=== PATIENT | female | born 1930 | race Caucasian/White ===

== ENCOUNTER 2018-03-21 23:20 | Inpatient (IN) | payer MEDICARE, MEDICAID ==
[~2018-03-21] VITALS: Ht 162.6 cm; Wt 74.8 kg
[~2018-03-21 23:20] MED LIST: NKM
[2018-03-21 23:29] VITALS: BP 95/67
[2018-03-21] MEDS ORDERED: dilTIAZem HCl 25mg/5ml Inj IVP ONE (23:45)
[2018-03-22] VITALS (7 sets, daily range): BP systolic 127–161; BP diastolic 70–85
[2018-03-22 00:24] LABS: BASOPHILS % (AUTO) 0.6 % (0.0-2.0); EOSINOPHILS % (AUTO) 0.7 % (0.0-3.0); HEMATOCRIT 38.7 % (37.0-47.0); HEMOGLOBIN 12.8 G/DL (12.0-16.0); LYMPHOCYTES % (AUTO) 19.9 % (20.0-45.0); MEAN CORPUSCULAR VOLUME 80 FL (80-99); MONOCYTES % (AUTO) 7.3 % (1.0-10.0); NEUTROPHILS % (AUTO) 71.6 % (45.0-75.0); PLATELET COUNT 354 K/UL (150-450); RED BLOOD COUNT 4.85 M/UL (4.20-5.40); RED CELL DISTRIBUTION WIDTH 12.9 % (11.6-14.8); WHITE BLOOD COUNT 10.2 K/UL (4.8-10.8)
[2018-03-22 00:37] LABS: ANION GAP 11 mmol/L (5-15); BLOOD UREA NITROGEN 30 mg/dL (7-18); CALCIUM 9.3 MG/DL (8.5-10.1); CARBON DIOXIDE 26 MMOL/L (21-32); CHLORIDE 103 MMOL/L (98-107); CREATININE 1.6 MG/DL (0.55-1.30); POTASSIUM 3.5 MMOL/L (3.5-5.1); SODIUM 140 MMOL/L (136-145)
[2018-03-22 00:51] LABS: ALANINE AMINOTRANSFERASE 12 U/L (12-78); ALBUMIN/GLOBULIN RATIO 0.7 (1.0-2.7); ALKALINE PHOSPHATASE 69 U/L (46-116); ASPARTATE AMINO TRANSFERASE 12 U/L (15-37); BILIRUBIN,TOTAL 0.3 MG/DL (0.2-1.0); CKMB 0.5 NG/ML (0.0-3.6); CREATINE KINASE 19 U/L (26-308)
[2018-03-22 01:00] LABS: BILIRUBIN, URINE 1+ (NEGATIVE); GLUCOSE, URINE (UA) 1+ (NEGATIVE); KETONES,URINE 1+ (NEGATIVE); NITRITE,URINE NEGATIVE (NEGATIVE); PH,URINE 5 (4.5-8.0); PROTEIN,URINE 2+ (NEGATIVE); UROBILINOGEN,URINE 1 MG/DL (0.0-1.0)
[2018-03-22 01:17] LABS: APPEARANCE,URINE CLOUDY; COLOR,URINE AMBER; LEUKOCYTE ESTERASE ,URINE 3+ (NEGATIVE)
[2018-03-22] MEDS ORDERED: cefTRIAXone 1 GM in NS 55 ML IVPB ONE (01:45)
[2018-03-22] MEDS: D5 1/2NS 1,000 ML IV SCH ×2 (06:16→23:32)
[2018-03-22 07:45] LABS: BASOPHILS % (AUTO) 0.7 % (0.0-2.0); EOSINOPHILS % (AUTO) 1.2 % (0.0-3.0); HEMATOCRIT 37.4 % (37.0-47.0); HEMOGLOBIN 12.3 G/DL (12.0-16.0); LYMPHOCYTES % (AUTO) 18.9 % (20.0-45.0); MEAN CORPUSCULAR VOLUME 81 FL (80-99); MONOCYTES % (AUTO) 6.4 % (1.0-10.0); NEUTROPHILS % (AUTO) 72.8 % (45.0-75.0); PLATELET COUNT 295 K/UL (150-450); RED BLOOD COUNT 4.64 M/UL (4.20-5.40); RED CELL DISTRIBUTION WIDTH 13.1 % (11.6-14.8); WHITE BLOOD COUNT 10.5 K/UL (4.8-10.8)
[2018-03-22] MEDS ORDERED: Enalaprilat 2.5mg/2ml Inj IV PRN (08:00)
[2018-03-22] MEDS ORDERED: dilTIAZem HCl 25mg/5ml Inj IV PRN (08:00)
[2018-03-22] MEDS ORDERED: Ketorolac 30mg Inj IV PRN (08:00)
[2018-03-22] MEDS ORDERED: Morphine Sulfate 2mg/ml Inj(IV/IM USE ONLY) IVP PRN (08:00)
[2018-03-22] MEDS ORDERED: Nitroglycerin Subl 0.4mg tab SL PRN (08:00)
[2018-03-22] MEDS ORDERED: Albuterol/Ipratropium 3ml neb HHN PRN (08:00)
[2018-03-22] MEDS ORDERED: Miralax 17gm pkt ORAL PRN (08:00)
[2018-03-22 08:08] LABS: ANION GAP 8 mmol/L (5-15); BLOOD UREA NITROGEN 29 mg/dL (7-18); CARBON DIOXIDE 30 MMOL/L (21-32); CHLORIDE 104 MMOL/L (98-107); CREATININE 1.4 MG/DL (0.55-1.30); POTASSIUM 3.5 MMOL/L (3.5-5.1); SODIUM 142 MMOL/L (136-145)
[2018-03-22] MEDS: Heparin 5000 units/ml inj SUBQ SCH ×2 (08:15→20:44)
[2018-03-22] MEDS: Aspirin Baby 81mg ORAL SCH (08:16)
--- NOTE | 2018-03-22 10:00 | Diagnostic Imaging Report ---
Indications: Altered mental status Technique: Spiral acquisitions obtained through the brain. Angled axial and coronal 5 x 5 mm slices were reconstructed. Total dose length product 1207.18 mGycm. CTDI vol(s) 70.38 mGy. Dose reduction achieved using automated exposure control Comparison: None. Findings: There is marked age-related enlargement of the ventricles and extra axial CSF spaces. There is considerable periventricular deep white matter low-attenuation, consistent with chronic ischemic change. No acute intracranial hemorrhage or edema, mass effect, nor midline shift. The calvarium is intact. There is some mastoid opacification on the right. Visualized orbits and sinuses are unremarkable. Old lacunar infarcts are seen in the bilateral external capsule regions. Impression: Chronic and age-related changes, as described Negative for acute intracranial bleed or mass effect This agrees with the preliminary interpretation provided overnight by [facility] service. The CT scanner at [facility] is accredited by the [employer] and the scans are performed using protocols designed to limit radiation exposure to as low as reasonably achievable to attain images of sufficient resolution adequate for diagnostic evaluation.
[2018-03-22] MEDS ORDERED: JANUVIA25 MG ORAL (10:26)
[2018-03-22] MEDS ORDERED: VITAMIN D250000 UNI1 ORAL (10:26)
[2018-03-22] MEDS ORDERED: METFORMIN HCL500 M1 ORAL (10:26)
[2018-03-22] MEDS ORDERED: PROTONIX40 MG ORAL (10:26)
[2018-03-22] MEDS ORDERED: ASPIRIN81 MG ORAL (10:26)
--- NOTE | 2018-03-22 11:25 | Consultation ---
History of Present Illness General Chief Complaint: Generalized Weakness Present Illness Allergies: Coded Allergies: No Known Allergies (Unverified , 03/21/18) Medication History Scheduled Aspirin* (Aspirin*), 81 MG ORAL DAILY, (Reported) Ergocalciferol (Vitamin D2)* (Vitamin D*), 50,000 UNIT ORAL ONCE A WEEK, ( Reported) Metformin Hcl* (Metformin Hcl*), 500 MG ORAL TWICE A DAY, (Reported) No Known Medications* (NKM - No Known Medications*), 0 ., (Reported) Pantoprazole* (Protonix*), 40 MG ORAL ACBREAKFAST, (Reported) Sitagliptin* (Januvia*), 25 MG ORAL DAILY, (Reported) Patient History Healthcare decision maker Resuscitation status Full Code Advanced Directive on File Physical Exam Last 24 Hour Vital Signs Date Time Temp Pulse Resp B/P (MAP) Pulse Ox O2 Delivery O2 Flow Rate FiO2 03/22/18 10:00 98.0 94 18 139/74 (95) 98 98.0 03/22/18 09:00 Room Air 03/22/18 07:33 89 03/22/18 05:55 Room Air 03/22/18 04:00 97.3 92 18 133/74 (93) 98 97.3 03/22/18 04:00 89 03/22/18 03:54 92 03/22/18 03:43 97.5 90 23 158/85 (109) 96 97.5 03/22/18 03:40 97.9 88 17 149/71 97 Room Air 97.9 03/22/18 03:30 97.9 88 17 149/71 97 Room Air 97.9 03/22/18 00:01 122 125/75 03/21/18 23:29 97.9 117 16 95/67 98 Room Air 97.9 03/21/18 22:55 97.9 162 16 95/67 98 Room Air 97.9 Intake and Output 03/21/18 03/22/18 19:00 07:00 Intake Total 44 ml Output Total 300 ml Balance -256 ml Intake IV Total 44 ml Output Urine Total 300 ml Laboratory Tests Test 03/22/18 00:00 03/22/18 02:00 03/22/18 07:15 White Blood Count 10.2 K/UL (4.8-10.8) 10.5 K/UL (4.8-10.8) Red Blood Count 4.85 M/UL (4.20-5.40) 4.64 M/UL (4.20-5.40) Hemoglobin 12.8 G/DL (12.0-16.0) 12.3 G/DL (12.0-16.0) Hematocrit 38.7 % (37.0-47.0) 37.4 % (37.0-47.0) Mean Corpuscular Volume 80 FL (80-99) 81 FL (80-99) Mean Corpuscular Hemoglobin 26.4 PG (27.0-31.0) L 26.6 PG (27.0-31.0) L Mean Corpuscular Hemoglobin Concent 33.0 G/DL (32.0-36.0) 33.0 G/DL (32.0-36.0) Red Cell Distribution Width 12.9 % (11.6-14.8) 13.1 % (11.6-14.8) Platelet Count 354 K/UL (150-450) 295 K/UL (150-450) Mean Platelet Volume 7.7 FL (6.5-10.1) 7.4 FL (6.5-10.1) Neutrophils (%) (Auto) 71.6 % (45.0-75.0) 72.8 % (45.0-75.0) Lymphocytes (%) (Auto) 19.9 % (20.0-45.0) L 18.9 % (20.0-45.0) L Monocytes (%) (Auto) 7.3 % (1.0-10.0) 6.4 % (1.0-10.0) Eosinophils (%) (Auto) 0.7 % (0.0-3.0) 1.2 % (0.0-3.0) Basophils (%) (Auto) 0.6 % (0.0-2.0) 0.7 % (0.0-2.0) Urine Color Vandana Urine Appearance Cloudy Urine pH 5 (4.5-8.0) Urine Specific [place] 1.025 (1.005-1.035) Urine Protein 2+ (NEGATIVE) H Urine Glucose (UA) 1+ (NEGATIVE) H Urine Ketones 1+ (NEGATIVE) H Urine Occult Blood 3+ (NEGATIVE) H Urine Nitrite Negative (NEGATIVE) Urine Bilirubin 1+ (NEGATIVE) H Urine Ictotest Positive (NEGATIVE) Urine Urobilinogen 1 MG/DL (0.0-1.0) H Urine Leukocyte Esterase 3+ (NEGATIVE) H Urine RBC 5-10 /HPF (0 - 2) H Urine WBC 40-60 /HPF (0 - 2) H Urine Squamous Epithelial Cells Moderate /LPF (NONE/OCC) H Urine Bacteria Moderate /HPF (NONE) H Urine Hyaline Casts 0-2 /LPF (NONE) H Urine Other Casts /LPF (NONE) Urine Mucus Moderate /LPF (NONE/OCC) H Sodium Level 140 MMOL/L (136-145) 142 MMOL/L (136-145) Potassium Level 3.5 MMOL/L (3.5-5.1) 3.5 MMOL/L (3.5-5.1) Chloride Level 103 MMOL/L (98-107) 104 MMOL/L (98-107) Carbon Dioxide Level 26 MMOL/L (21-32) 30 MMOL/L (21-32) Anion Gap 11 mmol/L (5-15) 8 mmol/L (5-15) Blood Urea Nitrogen 30 mg/dL (7-18) H 29 mg/dL (7-18) H Creatinine 1.6 MG/DL (0.55-1.30) H 1.4 MG/DL (0.55-1.30) H Estimat Glomerular Filtration Rate mL/min (>60) mL/min (>60) Glucose Level 234 MG/DL (74-106) H 220 MG/DL (74-106) H Lactic Acid Level 5.20 mmol/L (0.4-2.0) H 4.20 mmol/L (0.4-2.0) H Calcium Level 9.3 MG/DL (8.5-10.1) 10.0 MG/DL (8.5-10.1) Total Bilirubin 0.3 MG/DL (0.2-1.0) Aspartate Amino Transf (AST/SGOT) 12 U/L (15-37) L Alanine Aminotransferase (ALT/SGPT) 12 U/L (12-78) Alkaline Phosphatase 69 U/L (46-116) Total Creatine Kinase 19 U/L (26-308) L Creatine Kinase MB 0.5 NG/ML (0.0-3.6) Creatine Kinase MB Relative Index 2.6 Troponin I 0.000 ng/mL (0.000-0.056) 0.017 ng/mL (0.000-0.056) Pro-B-Type Natriuretic Peptide 1692 pg/mL (0-125) H Total Protein 7.3 G/DL (6.4-8.2) Albumin 3.0 G/DL (3.4-5.0) L Globulin 4.3 g/dL Albumin/Globulin Ratio 0.7 (1.0-2.7) L Height (Feet): 5 Height (Inches): 4.00 Weight (Pounds): 165 Medications Current Medications Medications (Trade) Dose Ordered Sig/Roman Route PRN Reason Start Time Stop Time Status Last Admin Dose Admin Acetaminophen (Tylenol) 650 mg Q4H PRN ORAL FEVER 03/22/18 08:00 04/21/18 07:59 Albuterol/ Ipratropium (Albuterol/ Ipratropium) 3 ml Q4H PRN HHN Shortness of Breath 03/22/18 08:00 03/27/18 07:59 Aspirin (ASA) 162 mg DAILY ORAL 03/22/18 09:00 04/21/18 08:59 03/22/18 08:16 Dextrose (Dextrose 50%) 25 ml STAT PRN IV Hypoglycemia 03/22/18 06:00 04/21/18 05:59 Dextrose (Dextrose 50%) 50 ml STAT PRN IV Hypoglycemia 03/22/18 06:00 04/21/18 05:59 Dextrose/Sodium Chloride 1,000 ml @ 60 mls/hr [id number] IV 03/22/18 07:00 04/21/18 06:59 03/22/18 06:16 Diltiazem HCl (Cardizem) 10 mg Q12H PRN IV heart rate more than 120, 03/22/18 08:00 04/21/18 07:59 Enalaprilat (Vasotec) 2.5 mg Q6H PRN IV sbp more than 160 03/22/18 08:00 04/21/18 07:59 Heparin Sodium (Porcine) (Heparin 5000 units/ml) 5,000 units EVERY 12 HOURS SUBQ 03/22/18 09:00 04/21/18 08:59 03/22/18 08:15 Ketorolac Tromethamine (Toradol 30mg) 30 mg Q6H PRN IV Moderate Pain (Pain Scale 4-6) 03/22/18 08:00 03/27/18 07:59 Morphine Sulfate (Morphine Sulfate) 2 mg Q4H PRN IVP Severe Pain (Pain Scale 7-10) 03/22/18 08:00 03/29/18 07:59 Nitroglycerin (Ntg) 0.4 mg Q5MIN PRN SL Prn Chest Pain 03/22/18 08:00 04/21/18 07:59 Ondansetron HCl (Zofran) 4 mg Q6H PRN IVP Nausea & Vomiting 03/22/18 08:00 04/21/18 07:59 Polyethylene Glycol (Miralax) 17 gm DAILYPRN PRN ORAL Constipation 03/22/18 08:00 04/21/18 07:59 Temazepam (Restoril) 15 mg HSPRN PRN ORAL Insomnia 03/22/18 21:00 03/29/18 20:59 Renan Varela M.D. Mar 22, 2018 11:25
--- NOTE | 2018-03-22 11:26 | Diagnostic Imaging Report ---
Indication: Shortness of breath Technique: One view of the chest Comparison: none Findings: There is elevation of left hemidiaphragm. There is crowding of the bronchovascular markings in the left perihilar region. The lungs and pleural spaces are otherwise clear. The heart size is upper limits of normal. Impression: No acute process
--- NOTE | 2018-03-22 11:48 | Consultation ---
History of Present Illness General Date patient seen: Mar 22, 2018 Chief Complaint: Generalized Weakness Present Illness HPI 87 year old female with hx of afib, CAD, recent fall and vertebral fracture, brought in by paramedics for increased weakness. Pt's daughter is concerned that pt can't walk any more and feels dizzy any time she tried to walk. Allergies: Coded Allergies: No Known Allergies (Unverified , 03/21/18) Medication History Scheduled Aspirin* (Aspirin*), 81 MG ORAL DAILY, (Reported) Ergocalciferol (Vitamin D2)* (Vitamin D*), 50,000 UNIT ORAL ONCE A WEEK, ( Reported) Metformin Hcl* (Metformin Hcl*), 500 MG ORAL TWICE A DAY, (Reported) No Known Medications* (NKM - No Known Medications*), 0 ., (Reported) Pantoprazole* (Protonix*), 40 MG ORAL ACBREAKFAST, (Reported) Sitagliptin* (Januvia*), 25 MG ORAL DAILY, (Reported) Patient History Healthcare decision maker Resuscitation status Full Code Advanced Directive on File Past Medical/Surgical History Past Medical/Surgical History: (1) Vertebral fracture (2) HTN (hypertension) Review of Systems All Other Systems: negative except mentioned in HPI Physical Exam General Appearance: WD/WN Lines, tubes and drains: peripheral HEENT: normocephalic, atraumatic Neck: non-tender, normal alignment Respiratory/Chest: chest wall non-tender, lungs clear Cardiovascular/Chest: normal peripheral pulses, normal rate Abdomen: normal bowel sounds Genitourinary/Rectal: normal genital exam Extremities: normal range of motion Neurologic: mud grinder II-XII grossly normal Last 24 Hour Vital Signs Date Time Temp Pulse Resp B/P (MAP) Pulse Ox O2 Delivery O2 Flow Rate FiO2 03/22/18 11:30 98.0 92 18 161/85 (110) 98 98.0 03/22/18 10:00 98.0 94 18 139/74 (95) 98 98.0 03/22/18 09:00 Room Air 03/22/18 07:33 89 03/22/18 05:55 Room Air 03/22/18 04:00 97.3 92 18 133/74 (93) 98 97.3 03/22/18 04:00 89 03/22/18 03:54 92 03/22/18 03:43 97.5 90 23 158/85 (109) 96 97.5 03/22/18 03:40 97.9 88 17 149/71 97 Room Air 97.9 03/22/18 03:30 97.9 88 17 149/71 97 Room Air 97.9 03/22/18 00:01 122 125/75 03/21/18 23:29 97.9 117 16 95/67 98 Room Air 97.9 03/21/18 22:55 97.9 162 16 95/67 98 Room Air 97.9 Intake and Output 03/21/18 03/22/18 19:00 07:00 Intake Total 44 ml Output Total 300 ml Balance -256 ml Intake IV Total 44 ml Output Urine Total 300 ml Laboratory Tests Test 03/22/18 00:00 03/22/18 02:00 03/22/18 07:15 White Blood Count 10.2 K/UL (4.8-10.8) 10.5 K/UL (4.8-10.8) Red Blood Count 4.85 M/UL (4.20-5.40) 4.64 M/UL (4.20-5.40) Hemoglobin 12.8 G/DL (12.0-16.0) 12.3 G/DL (12.0-16.0) Hematocrit 38.7 % (37.0-47.0) 37.4 % (37.0-47.0) Mean Corpuscular Volume 80 FL (80-99) 81 FL (80-99) Mean Corpuscular Hemoglobin 26.4 PG (27.0-31.0) L 26.6 PG (27.0-31.0) L Mean Corpuscular Hemoglobin Concent 33.0 G/DL (32.0-36.0) 33.0 G/DL (32.0-36.0) Red Cell Distribution Width 12.9 % (11.6-14.8) 13.1 % (11.6-14.8) Platelet Count 354 K/UL (150-450) 295 K/UL (150-450) Mean Platelet Volume 7.7 FL (6.5-10.1) 7.4 FL (6.5-10.1) Neutrophils (%) (Auto) 71.6 % (45.0-75.0) 72.8 % (45.0-75.0) Lymphocytes (%) (Auto) 19.9 % (20.0-45.0) L 18.9 % (20.0-45.0) L Monocytes (%) (Auto) 7.3 % (1.0-10.0) 6.4 % (1.0-10.0) Eosinophils (%) (Auto) 0.7 % (0.0-3.0) 1.2 % (0.0-3.0) Basophils (%) (Auto) 0.6 % (0.0-2.0) 0.7 % (0.0-2.0) Urine Color Vandana Urine Appearance Cloudy Urine pH 5 (4.5-8.0) Urine Specific [place] 1.025 (1.005-1.035) Urine Protein 2+ (NEGATIVE) H Urine Glucose (UA) 1+ (NEGATIVE) H Urine Ketones 1+ (NEGATIVE) H Urine Occult Blood 3+ (NEGATIVE) H Urine Nitrite Negative (NEGATIVE) Urine Bilirubin 1+ (NEGATIVE) H Urine Ictotest Positive (NEGATIVE) Urine Urobilinogen 1 MG/DL (0.0-1.0) H Urine Leukocyte Esterase 3+ (NEGATIVE) H Urine RBC 5-10 /HPF (0 - 2) H Urine WBC 40-60 /HPF (0 - 2) H Urine Squamous Epithelial Cells Moderate /LPF (NONE/OCC) H Urine Bacteria Moderate /HPF (NONE) H Urine Hyaline Casts 0-2 /LPF (NONE) H Urine Other Casts /LPF (NONE) Urine Mucus Moderate /LPF (NONE/OCC) H Sodium Level 140 MMOL/L (136-145) 142 MMOL/L (136-145) Potassium Level 3.5 MMOL/L (3.5-5.1) 3.5 MMOL/L (3.5-5.1) Chloride Level 103 MMOL/L (98-107) 104 MMOL/L (98-107) Carbon Dioxide Level 26 MMOL/L (21-32) 30 MMOL/L (21-32) Anion Gap 11 mmol/L (5-15) 8 mmol/L (5-15) Blood Urea Nitrogen 30 mg/dL (7-18) H 29 mg/dL (7-18) H Creatinine 1.6 MG/DL (0.55-1.30) H 1.4 MG/DL (0.55-1.30) H Estimat Glomerular Filtration Rate mL/min (>60) mL/min (>60) Glucose Level 234 MG/DL (74-106) H 220 MG/DL (74-106) H Lactic Acid Level 5.20 mmol/L (0.4-2.0) H 4.20 mmol/L (0.4-2.0) H Calcium Level 9.3 MG/DL (8.5-10.1) 10.0 MG/DL (8.5-10.1) Total Bilirubin 0.3 MG/DL (0.2-1.0) Aspartate Amino Transf (AST/SGOT) 12 U/L (15-37) L Alanine Aminotransferase (ALT/SGPT) 12 U/L (12-78) Alkaline Phosphatase 69 U/L (46-116) Total Creatine Kinase 19 U/L (26-308) L Creatine Kinase MB 0.5 NG/ML (0.0-3.6) Creatine Kinase MB Relative Index 2.6 Troponin I 0.000 ng/mL (0.000-0.056) 0.017 ng/mL (0.000-0.056) Pro-B-Type Natriuretic Peptide 1692 pg/mL (0-125) H Total Protein 7.3 G/DL (6.4-8.2) Albumin 3.0 G/DL (3.4-5.0) L Globulin 4.3 g/dL Albumin/Globulin Ratio 0.7 (1.0-2.7) L Height (Feet): 5 Height (Inches): 4.00 Weight (Pounds): 165 Medications Current Medications Medications (Trade) Dose Ordered Sig/Roman Route PRN Reason Start Time Stop Time Status Last Admin Dose Admin Acetaminophen (Tylenol) 650 mg Q4H PRN ORAL FEVER 03/22/18 08:00 04/21/18 07:59 Albuterol/ Ipratropium (Albuterol/ Ipratropium) 3 ml Q4H PRN HHN Shortness of Breath 03/22/18 08:00 03/27/18 07:59 Aspirin (ASA) 162 mg DAILY ORAL 03/22/18 09:00 04/21/18 08:59 03/22/18 08:16 Dextrose (Dextrose 50%) 25 ml STAT PRN IV Hypoglycemia 03/22/18 06:00 04/21/18 05:59 Dextrose (Dextrose 50%) 50 ml STAT PRN IV Hypoglycemia 03/22/18 06:00 04/21/18 05:59 Dextrose/Sodium Chloride 1,000 ml @ 60 mls/hr [id number] IV 03/22/18 07:00 04/21/18 06:59 03/22/18 06:16 Diltiazem HCl (Cardizem) 10 mg Q12H PRN IV heart rate more than 120, 03/22/18 08:00 04/21/18 07:59 Enalaprilat (Vasotec) 2.5 mg Q6H PRN IV sbp more than 160 03/22/18 08:00 04/21/18 07:59 Heparin Sodium (Porcine) (Heparin 5000 units/ml) 5,000 units EVERY 12 HOURS SUBQ 03/22/18 09:00 04/21/18 08:59 03/22/18 08:15 Ketorolac Tromethamine (Toradol 30mg) 30 mg Q6H PRN IV Moderate Pain (Pain Scale 4-6) 03/22/18 08:00 03/27/18 07:59 Morphine Sulfate (Morphine Sulfate) 2 mg Q4H PRN IVP Severe Pain (Pain Scale 7-10) 03/22/18 08:00 03/29/18 07:59 Nitroglycerin (Ntg) 0.4 mg Q5MIN PRN SL Prn Chest Pain 03/22/18 08:00 04/21/18 07:59 Ondansetron HCl (Zofran) 4 mg Q6H PRN IVP Nausea & Vomiting 03/22/18 08:00 04/21/18 07:59 Polyethylene Glycol (Miralax) 17 gm DAILYPRN PRN ORAL Constipation 03/22/18 08:00 04/21/18 07:59 Temazepam (Restoril) 15 mg HSPRN PRN ORAL Insomnia 03/22/18 21:00 03/29/18 20:59 Assessment/Plan Problem List: (1) Altered mental status ICD Codes: R41.82 - Altered mental status, unspecified SNOMED: 675626109 (2) Episode of generalized weakness ICD Codes: R53.1 - Weakness SNOMED: 95078247 (3) HTN (hypertension) ICD Codes: I10 - Essential (primary) hypertension SNOMED: 36822066 Assessment/Plan telemetry monitoring pt/ot cardiac evaluation check electrolytes dvt prophylaxis symptomatic treatment. Jaison Fine MD Mar 22, 2018 11:48
[2018-03-22] MEDS ORDERED: LORazepam 0.5mg tab ORAL PRN (15:30)
[2018-03-22] MEDS: Memantine 5 MG TAB ORAL SCH (17:10)
--- NOTE | 2018-03-22 18:57 | Consultation ---
Consult Note Consult Note NEUROLOGY CONSULTATION: Full note dictated #[id number] 87 y/o, RH, CF with PH of DM, AF, R-[place], episodes of loss of consciousness, gait problems, L2 spinal fracture. She was hospitalized for generalized weakness and loss of ability to walk. ON EXAM: Tenderness over L Spine. Problems with orientation, memory. Right peripheral VII CN palsy. Feels pain all over and thus unable to give good effort with motor exam. Globally diminished DTRs. Unable to stand and walk. IMPRESSION: Weakness due to poor effort due to pain. CT of brain with old CVD - subcortical. Cognitive dysfunction REC: W/U Cognitive dysfunction. Mobilize with PT/OT Lidoderm patch to LS spine. Yamilet Morelos M.D., M.S.P.H. YAMILET MORELOS Mar 22, 2018 18:57
--- NOTE | 2018-03-22 21:00 | History and Physical Report ---
DATE OF ADMISSION: 03/22/2018 TIME: 2 p.m. CONSULTANTS: 1. Jaison Fine M.D. 2. Babak Morelos M.D. 3. . 4. Maykel Hart M.D. CHIEF COMPLAINT: Weakness, atrial fibrillation with rapid ventricular response, and renal insufficiency. BRIEF HISTORY: This is an 87-year-old female, who lives at home, presented with increased weakness x2 days, came to the ER, diagnosed with the above, in atrial fibrillation with rapid ventricular response, and admitted to telemetry for further care. Currently, calm in bed, slight short of breath. No complaint. PAST MEDICAL HISTORY: Includes hypertension, vertebral fracture, altered mental status, and generalized weakness. PAST SURGICAL HISTORY: Unknown. MEDICATIONS: Include Restoril, Norvasc, aspirin, heparin, albuterol, nitroglycerin, Tylenol, Toradol, morphine, MiraLAX, Vasotec, and Cardizem. ALLERGIES: Denies. SOCIAL HISTORY: Unable to obtain secondary to the patient's confusion. REVIEW OF SYSTEMS: The patient is slightly confused. PHYSICAL EXAMINATION: GENERA: Calm in bed, not really following directions. VITAL SIGNS: Shows temperature is 98 degrees, pulse 92, respirations 18, and blood pressure 161/85. CARDIOVASCULAR: No murmurs. LUNGS: Poor air exchange. ABDOMEN: Bowel sounds positive. Nontender. Nondistended. EXTREMITIES: No cyanosis, clubbing, or edema. NEUROLOGIC: The patient moves all extremities, slightly weak. LABORATORY AND DIAGNOSTIC DATA: CBC is normal. BMP shows BUN and creatinine are 29 and 1.4. Glucose 220. Urinalysis shows 3+ leukocyte esterase. ASSESSMENT: 1. Weakness. 2. Urinary tract infection. 3. Atrial fibrillation with rapid ventricular response. 4. Renal insufficiency. 5. Diabetes. 6. Altered mental status. 7. Hypertension. PLAN: 1. Continue previous medications. 2. OT, PT, and dietary evaluation. 3. CBC and BMP in the morning. 4. Cardiology followup. 5. Antibiotics per Infectious Disease. 6. Psychiatry evaluation. 7. We will continue to follow the patient. Arley Red D.O. DR: SHADI JOB#: [id number] CC:
[2018-03-23] VITALS: BP 145/87
--- NOTE | 2018-03-23 | Consultation ---
DATE OF CONSULTATION: 03/22/2018 NEUROLOGY CONSULTATION CONSULTING PHYSICIAN: Babak Morelos M.D. REQUESTING PHYSICIAN: Arley Red D.O. HISTORY: Ms. Shelia Whaley is an 87-year-old, right-handed, lady, who does have a past history of diabetes mellitus, atrial fibrillation, right Degroot's palsy, episodes of loss of consciousness, gait problems, and an L2 spinal fracture recently. She was hospitalized for generalized weakness and loss of ability to walk. This consultation was thus requested to evaluate the patient from a neurological point of view for inability to walk. The patient was unable to give us any further history even though the translation service was utilized. PAST MEDICAL HISTORY: Significant for diabetes mellitus, atrial fibrillation, right Degroot's palsy, episodes of loss of consciousness, gait problems, and lumbar L2 spinal fracture recently. FAMILY HISTORY: Unavailable. PERSONAL HISTORY: Home: She lives with her daughter. Work: She is retired. Habits: None. MEDICATIONS: Temazepam, memantine, Ativan, Norvasc, aspirin, heparin for DVT prophylaxis, DuoNeb inhaler, nitroglycerin, Tylenol, Toradol, morphine sulfate, MiraLAX, Zofran, Vasotec, diltiazem, and she got a single injection of ceftriaxone earlier. PHYSICAL EXAMINATION: GENERAL: She is a well-developed, well-nourished, pleasant lady, lying in bed, in no acute distress. VITAL SIGNS: Pulse 96/minute, blood pressure 136/82 mmHg, respirations 18/minute, and temperature 97 degrees Fahrenheit. HEAD: Normocephalic and atraumatic. EENT: Examination benign. NECK: No neck rigidity was observed. SPINE: She had tenderness over the upper lumbar spine. She also complained of tenderness all over her body. NEUROLOGIC EXAMINATION: MENTAL STATUS EXAMINATION: She was awake and alert. She was oriented to self. She thought she was at [facility]. She had no idea of what the date, month, or year was. She was able to recall 3/3 words immediately, but could not remember any of them in 1 minute and 3 minutes. She was unable to tell me who the present President was. Further mental status testing was impossible even though an interpretation service was utilized. SPEECH: She had no dysarthria. LANGUAGE: Could not be tested adequately. CRANIAL NERVE EXAMINATION: II: The visual patel were intact on confrontation testing. III, IV & : External ocular movements were full and the pupils 3 mm in diameter, equal, round, regular, and reactive to light. V: She had normal facial sensations and the temporales, masseters, and pterygoids functioned normally. VII: She had right peripheral seventh cranial nerve palsy. VIII: She was able to hear and had no nystagmus. IX: The palate moved symmetrically on phonation. X: She had no hoarseness of voice. XI: The sternocleidomastoids and trapezii functioned normally. XII: The tongue was in the midline without any fasciculations or atrophy. MOTOR SYSTEM: The tone was normal in all four extremities. Examination of muscle mass revealed no focal wasting. Examination of power was exceedingly difficult to test because of significant give-way weakness in all four extremities. SENSORY EXAMINATION: She responded appropriately to deep pain in all four extremities. She was unable to cooperate for the sensory modalities. REFLEXES: Trace+ and bilaterally symmetrical at the biceps, triceps, and brachioradialis. 0 at both knees and ankles. The plantar responses were flexor bilaterally. COORDINATION: She performed well on [id number]-iw-[id number] testing. She was unable to perform fzaf-ag-eodv testing. STANCE & GAIT: Could not be tested because when attempts were made to even sit her up, she complained of severe pain all over her body and refused to stand and walk. DIAGNOSTIC IMPRESSION: 1. Ms. Shelia Whaley is an 87-year-old, right-handed, lady, who does have a past history of diabetes mellitus, atrial fibrillation, right Degroot's palsy, episodes of loss of consciousness, gait problems, and a recent L2 spinal fracture, who was hospitalized for generalized weakness and loss of ability to walk. 2. On neurological examination, at this time, she exhibits significant problems with orientation, memory, and global cognitive dysfunction. She also has a right peripheral seventh cranial nerve palsy, complains of pain all over her body and has significant tenderness over the upper lumbar spine. She has globally diminished deep tendon reflexes in the upper extremities with loss of deep tendon reflexes in the lower extremities. She is unable to stand and walk because of pain in her entire body and her low back. 3. The patient's history and neurological examination are most compatible with inability to walk due to pain. It is unclear as to how much of it is due to true weakness. 4. 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 5. It is unclear as to whether the patient's cognitive dysfunction is old or new. RECOMMENDATIONS: 1. Agree with management thus far. 2. The patient should be worked up thoroughly for treatable causes of cognitive dysfunction. 3. A Lidoderm patch should be applied to her lumbosacral area to help her with the back pain. 4. She should be mobilized with the help of physical and occupational therapy. 5. Depending on how she fares over the next day or so, further recommendations will be given. Thank you for entrusting me with the care of Ms. Whaley. I shall follow her with you. Babak Morelos M.D., M.S.P.H. DR: ADAM JOB#: [id number] MTDD
[2018-03-23 04:00] VITALS: BP 143/95
[2018-03-23 07:26] LABS: BASOPHILS % (AUTO) 0.5 % (0.0-2.0); EOSINOPHILS % (AUTO) 2.9 % (0.0-3.0); HEMATOCRIT 36.2 % (37.0-47.0); HEMOGLOBIN 11.9 G/DL (12.0-16.0); LYMPHOCYTES % (AUTO) 22.9 % (20.0-45.0); MEAN CORPUSCULAR VOLUME 79 FL (80-99); MONOCYTES % (AUTO) 6.6 % (1.0-10.0); NEUTROPHILS % (AUTO) 67.1 % (45.0-75.0); PLATELET COUNT 268 K/UL (150-450); RED BLOOD COUNT 4.56 M/UL (4.20-5.40); RED CELL DISTRIBUTION WIDTH 12.4 % (11.6-14.8); WHITE BLOOD COUNT 7.4 K/UL (4.8-10.8)
[2018-03-23 07:54] LABS: INR 1.1 (0.9-1.1)
[2018-03-23 08:00] VITALS: BP 136/78
[2018-03-23 08:05] LABS: ALANINE AMINOTRANSFERASE 14 U/L (12-78); ALBUMIN 2.8 G/DL (3.4-5.0); ALBUMIN/GLOBULIN RATIO 0.7 (1.0-2.7); ALKALINE PHOSPHATASE 75 U/L (46-116); ANION GAP 4 mmol/L (5-15); ASPARTATE AMINO TRANSFERASE 13 U/L (15-37); BILIRUBIN,TOTAL 0.4 MG/DL (0.2-1.0); BLOOD UREA NITROGEN 16 mg/dL (7-18); CALCIUM 9.4 MG/DL (8.5-10.1); CARBON DIOXIDE 32 MMOL/L (21-32); CHLORIDE 103 MMOL/L (98-107); CHOLESTEROL 141 MG/DL (< 200); HDL CHOLESTEROL 60 MG/DL (40-60); POTASSIUM 3.3 MMOL/L (3.5-5.1); SODIUM 139 MMOL/L (136-145); TRIGLYCERIDES 98 MG/DL (30-150)
[2018-03-23 08:16] LABS: PHOSPHORUS 2.6 MG/DL (2.5-4.9)
[2018-03-23] MEDS: Heparin 5000 units/ml inj SUBQ SCH ×2 (08:51→21:39)
[2018-03-23] MEDS: Memantine 5 MG TAB ORAL SCH ×3 (08:52→18:46)
[2018-03-23] MEDS: Aspirin Baby 81mg ORAL SCH ×2 (08:52→09:00)
[2018-03-23] MEDS: sitaGLIPtin 25mg tab ORAL SCH ×2 (08:52→09:00)
--- NOTE | 2018-03-23 11:14 | Consultation ---
History of Present Illness General Date patient seen: Mar 23, 2018 Chief Complaint: Generalized Weakness Reason for Consultation: UTI Present Illness HPI Ms Whaley is a 87 yo female with PMHx of DM, CAD, HTN and vertebral fracture who presents with Afib RVR, JOESPH and Positive UA. The patient presented to the ED on 03/22/18 with complaint of weakness and dizziness. Per nursing not daughter felt that she could not take care of her any more. The patient denies pain. I spoke the patient through an reliability manager ( Nurse ). Patient alert to name only. She is a pleasant woman who denies any symptoms. Specifically denies F/C, Dysuria, Abdominal pain Back pain and N/V. PMHx/PSHx #HTN # DM #Vertebral fracture #CAD PSHx #Pacemaker SP removal 03/12/18 SocHx Lives with daughter Rivas Unable to obtain Allergies: Coded Allergies: No Known Allergies (Unverified , 03/21/18) Medication History Scheduled Aspirin* (Aspirin*), 81 MG ORAL DAILY, (Reported) Ergocalciferol (Vitamin D2)* (Vitamin D*), 50,000 UNIT ORAL ONCE A WEEK, ( Reported) Metformin Hcl* (Metformin Hcl*), 500 MG ORAL TWICE A DAY, (Reported) No Known Medications* (NKM - No Known Medications*), 0 ., (Reported) Pantoprazole* (Protonix*), 40 MG ORAL ACBREAKFAST, (Reported) Sitagliptin* (Januvia*), 25 MG ORAL DAILY, (Reported) Patient History Healthcare decision maker Resuscitation status Full Code Advanced Directive on File Review of Systems All Other Systems: negative except mentioned in HPI Physical Exam Last 24 Hour Vital Signs Date Time Temp Pulse Resp B/P (MAP) Pulse Ox O2 Delivery O2 Flow Rate FiO2 03/23/18 09:00 94 136/78 03/23/18 09:00 Room Air 03/23/18 08:00 97.1 89 20 136/78 (97) 98 97.1 03/23/18 08:00 94 03/23/18 04:00 92 03/23/18 04:00 98.0 95 20 143/95 (111) 98 98.0 03/23/18 00:00 98.5 91 20 145/87 (106) 96 98.5 03/23/18 00:00 94 03/22/18 21:00 Room Air 03/22/18 20:00 97.8 94 20 127/70 (89) 95 97.8 03/22/18 20:00 94 03/22/18 15:50 97.0 96 18 136/82 (100) 98 97.0 03/22/18 15:47 93 03/22/18 14:12 90 161/85 03/22/18 11:35 90 03/22/18 11:30 98.0 92 18 161/85 (110) 98 98.0 Intake and Output 03/22/18 03/23/18 19:00 07:00 Intake Total 380 ml Balance 380 ml Intake Oral 200 ml IV Total 180 ml # Voids 1 2 Laboratory Tests Test 03/23/18 07:10 White Blood Count 7.4 K/UL (4.8-10.8) Red Blood Count 4.56 M/UL (4.20-5.40) Hemoglobin 11.9 G/DL (12.0-16.0) L Hematocrit 36.2 % (37.0-47.0) L Mean Corpuscular Volume 79 FL (80-99) L Mean Corpuscular Hemoglobin 26.1 PG (27.0-31.0) L Mean Corpuscular Hemoglobin Concent 32.9 G/DL (32.0-36.0) Red Cell Distribution Width 12.4 % (11.6-14.8) Platelet Count 268 K/UL (150-450) Mean Platelet Volume 7.1 FL (6.5-10.1) Neutrophils (%) (Auto) 67.1 % (45.0-75.0) Lymphocytes (%) (Auto) 22.9 % (20.0-45.0) Monocytes (%) (Auto) 6.6 % (1.0-10.0) Eosinophils (%) (Auto) 2.9 % (0.0-3.0) Basophils (%) (Auto) 0.5 % (0.0-2.0) Prothrombin Time 11.4 SEC (9.30-11.50) Prothromb Time International Ratio 1.1 (0.9-1.1) Activated Partial Thromboplast Time 38 SEC (23-33) H Sodium Level 139 MMOL/L (136-145) Potassium Level 3.3 MMOL/L (3.5-5.1) L Chloride Level 103 MMOL/L (98-107) Carbon Dioxide Level 32 MMOL/L (21-32) Anion Gap 4 mmol/L (5-15) L Blood Urea Nitrogen 16 mg/dL (7-18) Creatinine 1.0 MG/DL (0.55-1.30) Estimat Glomerular Filtration Rate mL/min (>60) Glucose Level 172 MG/DL (74-106) H Calcium Level 9.4 MG/DL (8.5-10.1) Phosphorus Level 2.6 MG/DL (2.5-4.9) Magnesium Level 1.1 MG/DL (1.8-2.4) L Total Bilirubin 0.4 MG/DL (0.2-1.0) Aspartate Amino Transf (AST/SGOT) 13 U/L (15-37) L Alanine Aminotransferase (ALT/SGPT) 14 U/L (12-78) Alkaline Phosphatase 75 U/L (46-116) Troponin I 0.000 ng/mL (0.000-0.056) C-Reactive Protein, Quantitative 0.9 mg/dL (0.00-0.90) Total Protein 6.9 G/DL (6.4-8.2) Albumin 2.8 G/DL (3.4-5.0) L Globulin 4.1 g/dL Albumin/Globulin Ratio 0.7 (1.0-2.7) L Triglycerides Level 98 MG/DL (30-150) Cholesterol Level 141 MG/DL (< 200) LDL Cholesterol 74 mg/dL (<100) HDL Cholesterol 60 MG/DL (40-60) Cholesterol/HDL Ratio 2.4 (3.3-4.4) L Thyroid Stimulating Hormone (TSH) 2.147 uiU/mL (0.358-3.740) Height (Feet): 5 Height (Inches): 4.00 Weight (Pounds): 165 Medications Current Medications Medications (Trade) Dose Ordered Sig/Roman Route PRN Reason Start Time Stop Time Status Last Admin Dose Admin Acetaminophen (Tylenol) 650 mg Q4H PRN ORAL FEVER 03/22/18 08:00 04/21/18 07:59 Albuterol/ Ipratropium (Albuterol/ Ipratropium) 3 ml Q4H PRN HHN Shortness of Breath 03/22/18 08:00 03/27/18 07:59 Amlodipine Besylate (Norvasc) 10 mg DAILY ORAL 03/22/18 14:00 04/21/18 13:59 03/22/18 14:12 Aspirin (ASA) 162 mg DAILY ORAL 03/22/18 09:00 04/21/18 08:59 03/22/18 08:16 Dextrose (Dextrose 50%) 25 ml STAT PRN IV Hypoglycemia 03/22/18 06:00 04/21/18 05:59 Dextrose (Dextrose 50%) 50 ml STAT PRN IV Hypoglycemia 03/22/18 06:00 04/21/18 05:59 Dextrose/Sodium Chloride 1,000 ml @ 60 mls/hr [id number] IV 03/22/18 07:00 04/21/18 06:59 03/22/18 06:16 Diltiazem HCl (Cardizem) 10 mg Q12H PRN IV heart rate more than 120, 03/22/18 08:00 04/21/18 07:59 Enalaprilat (Vasotec) 2.5 mg Q6H PRN IV sbp more than 160 03/22/18 08:00 04/21/18 07:59 Heparin Sodium (Porcine) (Heparin 5000 units/ml) 5,000 units EVERY 12 HOURS SUBQ 03/22/18 09:00 04/21/18 08:59 03/23/18 08:51 Insulin Aspart (NovoLOG) BEFORE MEALS AND HS SUBQ 03/23/18 11:30 04/22/18 11:29 Ketorolac Tromethamine (Toradol 30mg) 30 mg Q6H PRN IV Moderate Pain (Pain Scale 4-6) 03/22/18 08:00 03/27/18 07:59 Lidocaine (Lidoderm 5% PATCH) 1 patch DAILY TDERMAL 03/22/18 19:00 04/21/18 18:59 03/23/18 08:53 Lorazepam (Ativan) 0.5 mg Q6H PRN ORAL For Anxiety 03/22/18 15:30 03/29/18 15:29 Memantine (Namenda) 5 mg BID ORAL 03/22/18 18:00 04/21/18 17:59 03/22/18 17:10 Metformin HCl (Glucophage) 500 mg BIAC ORAL 03/23/18 11:30 04/22/18 11:29 Morphine Sulfate (Morphine Sulfate) 2 mg Q4H PRN IVP Severe Pain (Pain Scale 7-10) 03/22/18 08:00 03/29/18 07:59 Nitroglycerin (Ntg) 0.4 mg Q5MIN PRN SL Prn Chest Pain 03/22/18 08:00 04/21/18 07:59 Ondansetron HCl (Zofran) 4 mg Q6H PRN IVP Nausea & Vomiting 03/22/18 08:00 04/21/18 07:59 Polyethylene Glycol (Miralax) 17 gm DAILYPRN PRN ORAL Constipation 03/22/18 08:00 04/21/18 07:59 Sitagliptin Phosphate (Januvia) 25 mg DAILY ORAL 03/23/18 09:00 04/22/18 08:59 Temazepam (Restoril) 15 mg HSPRN PRN ORAL Insomnia 03/22/18 21:00 03/29/18 20:59 Objective Narrative Gen: NAD, well appearing older woman HEENT: NCAT, MMM, EOMI, PERRL, No Oral lesion, no scleral icterus NECK: full range of motion, supple, no meningismus, No LAD, No JVD LUNGS: CTAB, No W/C, No Accessory muscle use CARDS: RRR, S1, S2, No M/R/G, ABD: Soft, Distended, Fluid wave, Mildly TTP, No R/G, + BS Ext: C/C/E, Pulses 2+ B/L (DP, Rad), No joint pain or erythema : Deferred NEURO: A/O x 1 (Name only), Strength and Sensation Grossly intact PSYCH: mood/affect normal SKIN: warm/dry, No rashes Assessment/Plan Assessment/Plan 87 yo female with PMHx of DM, CAD, HTN and vertebral fracture who presents with Afib RVR, JOESPH and Positive UA. The patient presented to the ED on 03/22/18 with complaint of weakness and dizziness. # UTI UA positive - Urine cultures pending # Weakness. # Atrial fibrillation with rapid ventricular response. # Renal insufficiency. # Diabetes. # Altered mental status. # Hypertension # CAD PLAN: - Continue Ceftriaxone #2 for UTI - f/u Cultures - Monitor CBC and Temps and Mental status - Supportive care. Thank you for consulting us for the care of this patient. We will continue to follow with you. Renan Gil M.D. Mar 23, 2018 11:14
[2018-03-23] MEDS: metFORMIN 500mg tab ORAL SCH ×2 (11:57→16:44)
[2018-03-23] MEDS: NovoLOG Insulin Flexpen SUBQ SCH ×3 (11:58→22:01)
--- NOTE | 2018-03-23 11:58 | General Progress Note ---
Assessment/Plan Problem List: (1) UTI (urinary tract infection) ICD Codes: N39.0 - Urinary tract infection, site not specified SNOMED: 47318088 (2) Atrial fibrillation ICD Codes: I48.91 - Unspecified atrial fibrillation SNOMED: 96818820 (3) Diabetes ICD Codes: E11.9 - Type 2 diabetes mellitus without complications SNOMED: 60912372 (4) Weak ICD Codes: R53.1 - Weakness SNOMED: 23431670 (5) HTN (hypertension) ICD Codes: I10 - Essential (primary) hypertension SNOMED: 09565063 (6) Altered mental status ICD Codes: R41.82 - Altered mental status, unspecified SNOMED: 275072681 (7) Episode of generalized weakness ICD Codes: R53.1 - Weakness SNOMED: 42263687 Status: unchanged Assessment/Plan ot pt diet abx cardio f/u cbc bmp am Subjective Constitutional: Reports: weakness Allergies: Coded Allergies: No Known Allergies (Unverified , 03/21/18) All Systems: reviewed and negative except above Subjective calm sitting in chair Objective Last 24 Hour Vital Signs Date Time Temp Pulse Resp B/P (MAP) Pulse Ox O2 Delivery O2 Flow Rate FiO2 03/23/18 11:30 Room Air 03/23/18 11:30 97 Room Air 03/23/18 11:30 47 18 Room Air 03/23/18 09:00 94 136/78 03/23/18 09:00 Room Air 03/23/18 08:00 97.1 89 20 136/78 (97) 98 97.1 03/23/18 08:00 94 03/23/18 04:00 92 03/23/18 04:00 98.0 95 20 143/95 (111) 98 98.0 03/23/18 00:00 98.5 91 20 145/87 (106) 96 98.5 03/23/18 00:00 94 03/22/18 21:00 Room Air 03/22/18 20:00 97.8 94 20 127/70 (89) 95 97.8 03/22/18 20:00 94 03/22/18 15:50 97.0 96 18 136/82 (100) 98 97.0 03/22/18 15:47 93 03/22/18 14:12 90 161/85 Intake and Output 03/22/18 03/23/18 19:00 07:00 Intake Total 380 ml 60 ml Balance 380 ml 60 ml Intake Oral 200 ml IV Total 180 ml 60 ml # Voids 1 2 Laboratory Tests 03/23/18 07:10: White Blood Count 7.4, Red Blood Count 4.56, Hemoglobin 11.9L, Hematocrit 36.2L , Mean Corpuscular Volume 79L, Mean Corpuscular Hemoglobin 26.1L, Mean Corpuscular Hemoglobin Concent 32.9, Red Cell Distribution Width 12.4, Platelet Count 268, Mean Platelet Volume 7.1, Neutrophils (%) (Auto) 67.1, Lymphocytes (% ) (Auto) 22.9, Monocytes (%) (Auto) 6.6, Eosinophils (%) (Auto) 2.9, Basophils ( %) (Auto) 0.5, Prothrombin Time 11.4, Prothromb Time International Ratio 1.1, Activated Partial Thromboplast Time 38H, Sodium Level 139, Potassium Level 3.3L , Chloride Level 103, Carbon Dioxide Level 32, Anion Gap 4L, Blood Urea Nitrogen 16, Creatinine 1.0, Estimat Glomerular Filtration Rate , Glucose Level 172H, Calcium Level 9.4, Phosphorus Level 2.6, Magnesium Level 1.1L, Total Bilirubin 0.4, Aspartate Amino Transf (AST/SGOT) 13L, Alanine Aminotransferase ( ALT/SGPT) 14, Alkaline Phosphatase 75, Troponin I 0.000, C-Reactive Protein, Quantitative 0.9, Total Protein 6.9, Albumin 2.8L, Globulin 4.1, Albumin/ Globulin Ratio 0.7L, Triglycerides Level 98, Cholesterol Level 141, LDL Cholesterol 74, HDL Cholesterol 60, Cholesterol/HDL Ratio 2.4L, Thyroid Stimulating Hormone (TSH) 2.147 Height (Feet): 5 Height (Inches): 4.00 Weight (Pounds): 165 General Appearance: confused EENT: normal ENT inspection Neck: normal alignment Cardiovascular: normal peripheral pulses, normal rate, regular rhythm Respiratory/Chest: chest wall non-tender, lungs clear, normal breath sounds Abdomen: normal bowel sounds, non tender, soft Extremities: normal inspection Edema: no edema noted Arm (L), no edema noted Arm (R), no edema noted Leg (L), no edema noted Leg (R), no edema noted Pedal (L), no edema noted Pedal (R), no edema noted Generalized Neurologic: motor weakness Skin: normal pigmentation, warm/dry Arley Red DO Mar 23, 2018 11:58
[2018-03-23 12:00] VITALS: BP 142/82
--- NOTE | 2018-03-23 12:14 | Cardiology Progress Note ---
Assessment/Plan Status: stable Assessment/Plan Assessment/Plan Problem List: (1) Altered mental status (2) Episode of generalized weakness (3) HTN (hypertension) (4) diastolic dysfunction HFpEF Plan: Fluids Pain control Physical therapy Start norvasc 10 mg for hypertension Echo reviewed- normal function, stage II diastolic dysfunction, no sign of fluid overload, hold diuresis Salt restriction Dispo planning Subjective Cardiovascular: Reports: no symptoms Respiratory: Reports: no symptoms Gastrointestinal/Abdominal: Reports: no symptoms Subjective no acute events, BP elevated overnight, complains of back pain. Objective Last 24 Hour Vital Signs Date Time Temp Pulse Resp B/P (MAP) Pulse Ox O2 Delivery O2 Flow Rate FiO2 03/23/18 11:30 Room Air 03/23/18 11:30 97 Room Air 03/23/18 11:30 47 18 Room Air 03/23/18 09:00 94 136/78 03/23/18 09:00 Room Air 03/23/18 08:00 97.1 89 20 136/78 (97) 98 97.1 03/23/18 08:00 94 03/23/18 04:00 92 03/23/18 04:00 98.0 95 20 143/95 (111) 98 98.0 03/23/18 00:00 98.5 91 20 145/87 (106) 96 98.5 03/23/18 00:00 94 03/22/18 21:00 Room Air 03/22/18 20:00 97.8 94 20 127/70 (89) 95 97.8 03/22/18 20:00 94 03/22/18 15:50 97.0 96 18 136/82 (100) 98 97.0 03/22/18 15:47 93 03/22/18 14:12 90 161/85 General Appearance: no apparent distress, alert EENT: PERRL/EOMI, normal ENT inspection, TMs normal Neck: non-tender, normal alignment Rhythm: NSR Cardiovascular: normal peripheral pulses, normal rate, regular rhythm, regularly irregular Respiratory/Chest: chest wall non-tender, lungs clear Abdomen: normal bowel sounds, non tender Extremities: normal range of motion, non-tender Neurologic: lead massage therapist II-XII grossly normal, no motor/sensory deficits Intake and Output 03/22/18 03/23/18 19:00 07:00 Intake Total 380 ml 60 ml Balance 380 ml 60 ml Intake Oral 200 ml IV Total 180 ml 60 ml # Voids 1 2 Laboratory Tests Test 03/23/18 07:10 White Blood Count 7.4 K/UL (4.8-10.8) Red Blood Count 4.56 M/UL (4.20-5.40) Hemoglobin 11.9 G/DL (12.0-16.0) L Hematocrit 36.2 % (37.0-47.0) L Mean Corpuscular Volume 79 FL (80-99) L Mean Corpuscular Hemoglobin 26.1 PG (27.0-31.0) L Mean Corpuscular Hemoglobin Concent 32.9 G/DL (32.0-36.0) Red Cell Distribution Width 12.4 % (11.6-14.8) Platelet Count 268 K/UL (150-450) Mean Platelet Volume 7.1 FL (6.5-10.1) Neutrophils (%) (Auto) 67.1 % (45.0-75.0) Lymphocytes (%) (Auto) 22.9 % (20.0-45.0) Monocytes (%) (Auto) 6.6 % (1.0-10.0) Eosinophils (%) (Auto) 2.9 % (0.0-3.0) Basophils (%) (Auto) 0.5 % (0.0-2.0) Prothrombin Time 11.4 SEC (9.30-11.50) Prothromb Time International Ratio 1.1 (0.9-1.1) Activated Partial Thromboplast Time 38 SEC (23-33) H Sodium Level 139 MMOL/L (136-145) Potassium Level 3.3 MMOL/L (3.5-5.1) L Chloride Level 103 MMOL/L (98-107) Carbon Dioxide Level 32 MMOL/L (21-32) Anion Gap 4 mmol/L (5-15) L Blood Urea Nitrogen 16 mg/dL (7-18) Creatinine 1.0 MG/DL (0.55-1.30) Estimat Glomerular Filtration Rate mL/min (>60) Glucose Level 172 MG/DL (74-106) H Calcium Level 9.4 MG/DL (8.5-10.1) Phosphorus Level 2.6 MG/DL (2.5-4.9) Magnesium Level 1.1 MG/DL (1.8-2.4) L Total Bilirubin 0.4 MG/DL (0.2-1.0) Aspartate Amino Transf (AST/SGOT) 13 U/L (15-37) L Alanine Aminotransferase (ALT/SGPT) 14 U/L (12-78) Alkaline Phosphatase 75 U/L (46-116) Troponin I 0.000 ng/mL (0.000-0.056) C-Reactive Protein, Quantitative 0.9 mg/dL (0.00-0.90) Total Protein 6.9 G/DL (6.4-8.2) Albumin 2.8 G/DL (3.4-5.0) L Globulin 4.1 g/dL Albumin/Globulin Ratio 0.7 (1.0-2.7) L Triglycerides Level 98 MG/DL (30-150) Cholesterol Level 141 MG/DL (< 200) LDL Cholesterol 74 mg/dL (<100) HDL Cholesterol 60 MG/DL (40-60) Cholesterol/HDL Ratio 2.4 (3.3-4.4) L Thyroid Stimulating Hormone (TSH) 2.147 uiU/mL (0.358-3.740) Microbiology Date/Time Source Procedure Growth Status 03/22/18 00:00 Blood Blood Culture - Preliminary NO GROWTH AFTER 24 HOURS Resulted 03/21/18 23:45 Blood Blood Culture - Preliminary NO GROWTH AFTER 24 HOURS Resulted 03/22/18 00:00 Urine,Clean Catch Urine Culture - Preliminary NO GROWTH AFTER 24 HOURS Resulted Renan Varela M.D. Mar 23, 2018 12:14
--- NOTE | 2018-03-23 12:24 | Pulmonology Progress Note ---
Assessment/Plan Problems: (1) Altered mental status (2) Episode of generalized weakness (3) HTN (hypertension) Assessment/Plan echo reviewed pt/ot monitor BP dc planning to snif dvt prophylaxis Subjective ROS Limited/Unobtainable: No Constitutional: Reports: no symptoms HEENT: Repors: no symptoms Respiratory: Reports: no symptoms Allergies: Coded Allergies: No Known Allergies (Unverified , 03/21/18) Objective Last 24 Hour Vital Signs Date Time Temp Pulse Resp B/P (MAP) Pulse Ox O2 Delivery O2 Flow Rate FiO2 03/23/18 11:30 Room Air 03/23/18 11:30 97 Room Air 03/23/18 11:30 47 18 Room Air 03/23/18 09:00 94 136/78 03/23/18 09:00 Room Air 03/23/18 08:00 97.1 89 20 136/78 (97) 98 97.1 03/23/18 08:00 94 03/23/18 04:00 92 03/23/18 04:00 98.0 95 20 143/95 (111) 98 98.0 03/23/18 00:00 98.5 91 20 145/87 (106) 96 98.5 03/23/18 00:00 94 03/22/18 21:00 Room Air 03/22/18 20:00 97.8 94 20 127/70 (89) 95 97.8 03/22/18 20:00 94 03/22/18 15:50 97.0 96 18 136/82 (100) 98 97.0 03/22/18 15:47 93 03/22/18 14:12 90 161/85 Intake and Output 03/22/18 03/23/18 19:00 07:00 Intake Total 380 ml 60 ml Balance 380 ml 60 ml Intake Oral 200 ml IV Total 180 ml 60 ml # Voids 1 2 General Appearance: WD/WN HEENT: normocephalic, atraumatic Respiratory/Chest: chest wall non-tender, lungs clear, no respiratory distress Cardiovascular: normal peripheral pulses, regular rhythm, no JVD Abdomen: soft, non tender Microbiology Date/Time Source Procedure Growth Status 03/22/18 00:00 Blood Blood Culture - Preliminary NO GROWTH AFTER 24 HOURS Resulted 03/21/18 23:45 Blood Blood Culture - Preliminary NO GROWTH AFTER 24 HOURS Resulted 03/22/18 00:00 Urine,Clean Catch Urine Culture - Preliminary NO GROWTH AFTER 24 HOURS Resulted Laboratory Tests 03/23/18 07:10: White Blood Count 7.4, Red Blood Count 4.56, Hemoglobin 11.9L, Hematocrit 36.2L , Mean Corpuscular Volume 79L, Mean Corpuscular Hemoglobin 26.1L, Mean Corpuscular Hemoglobin Concent 32.9, Red Cell Distribution Width 12.4, Platelet Count 268, Mean Platelet Volume 7.1, Neutrophils (%) (Auto) 67.1, Lymphocytes (% ) (Auto) 22.9, Monocytes (%) (Auto) 6.6, Eosinophils (%) (Auto) 2.9, Basophils ( %) (Auto) 0.5, Prothrombin Time 11.4, Prothromb Time International Ratio 1.1, Activated Partial Thromboplast Time 38H, Sodium Level 139, Potassium Level 3.3L , Chloride Level 103, Carbon Dioxide Level 32, Anion Gap 4L, Blood Urea Nitrogen 16, Creatinine 1.0, Estimat Glomerular Filtration Rate , Glucose Level 172H, Calcium Level 9.4, Phosphorus Level 2.6, Magnesium Level 1.1L, Total Bilirubin 0.4, Aspartate Amino Transf (AST/SGOT) 13L, Alanine Aminotransferase ( ALT/SGPT) 14, Alkaline Phosphatase 75, Troponin I 0.000, C-Reactive Protein, Quantitative 0.9, Total Protein 6.9, Albumin 2.8L, Globulin 4.1, Albumin/ Globulin Ratio 0.7L, Triglycerides Level 98, Cholesterol Level 141, LDL Cholesterol 74, HDL Cholesterol 60, Cholesterol/HDL Ratio 2.4L, Thyroid Stimulating Hormone (TSH) 2.147 Current Medications Medications (Trade) Dose Ordered Sig/Roman Route PRN Reason Start Time Stop Time Status Last Admin Dose Admin Acetaminophen (Tylenol) 650 mg Q4H PRN ORAL FEVER 03/22/18 08:00 04/21/18 07:59 Albuterol/ Ipratropium (Albuterol/ Ipratropium) 3 ml Q4H PRN HHN Shortness of Breath 03/22/18 08:00 03/27/18 07:59 Amlodipine Besylate (Norvasc) 10 mg DAILY ORAL 03/22/18 14:00 04/21/18 13:59 03/22/18 14:12 Aspirin (ASA) 162 mg DAILY ORAL 03/22/18 09:00 04/21/18 08:59 03/22/18 08:16 Dextrose (Dextrose 50%) 25 ml STAT PRN IV Hypoglycemia 03/22/18 06:00 04/21/18 05:59 Dextrose (Dextrose 50%) 50 ml STAT PRN IV Hypoglycemia 03/22/18 06:00 04/21/18 05:59 Dextrose/Sodium Chloride 1,000 ml @ 60 mls/hr [id number] IV 03/22/18 07:00 04/21/18 06:59 03/22/18 06:16 Diltiazem HCl (Cardizem) 10 mg Q12H PRN IV heart rate more than 120, 03/22/18 08:00 04/21/18 07:59 Enalaprilat (Vasotec) 2.5 mg Q6H PRN IV sbp more than 160 03/22/18 08:00 04/21/18 07:59 Heparin Sodium (Porcine) (Heparin 5000 units/ml) 5,000 units EVERY 12 HOURS SUBQ 03/22/18 09:00 04/21/18 08:59 03/23/18 08:51 Insulin Aspart (NovoLOG) BEFORE MEALS AND HS SUBQ 03/23/18 11:30 04/22/18 11:29 03/23/18 11:58 Ketorolac Tromethamine (Toradol 30mg) 30 mg Q6H PRN IV Moderate Pain (Pain Scale 4-6) 03/22/18 08:00 03/27/18 07:59 Lidocaine (Lidoderm 5% PATCH) 1 patch DAILY TDERMAL 03/22/18 19:00 04/21/18 18:59 03/23/18 08:53 Lorazepam (Ativan) 0.5 mg Q6H PRN ORAL For Anxiety 03/22/18 15:30 03/29/18 15:29 Magnesium Sulfate 100 ml @ 100 mls/hr Q1H IVPB 03/23/18 11:30 03/23/18 13:29 03/23/18 11:57 Memantine (Namenda) 5 mg BID ORAL 03/22/18 18:00 04/21/18 17:59 03/22/18 17:10 Metformin HCl (Glucophage) 500 mg BIAC ORAL 03/23/18 11:30 04/22/18 11:29 03/23/18 11:57 Morphine Sulfate (Morphine Sulfate) 2 mg Q4H PRN IVP Severe Pain (Pain Scale 7-10) 03/22/18 08:00 03/29/18 07:59 Nitroglycerin (Ntg) 0.4 mg Q5MIN PRN SL Prn Chest Pain 03/22/18 08:00 04/21/18 07:59 Ondansetron HCl (Zofran) 4 mg Q6H PRN IVP Nausea & Vomiting 03/22/18 08:00 04/21/18 07:59 Polyethylene Glycol (Miralax) 17 gm DAILYPRN PRN ORAL Constipation 03/22/18 08:00 04/21/18 07:59 Potassium Chloride 100 ml @ 100 mls/hr Q1H IVPB 03/23/18 14:00 03/23/18 17:59 Sitagliptin Phosphate (Januvia) 25 mg DAILY ORAL 03/23/18 09:00 04/22/18 08:59 Temazepam (Restoril) 15 mg HSPRN PRN ORAL Insomnia 03/22/18 21:00 03/29/18 20:59 Jaison Fine MD Mar 23, 2018 12:24
--- NOTE | 2018-03-23 12:40 | Neurology Progress Note ---
Interim History Interim History Interim History Ms. Whaley feels better today. She is sitting up in a chair comfortably. The mind is clearer. She is still forgetful. She is able to walk a little today She continues to be cognitively impoverished. Review of Systems Neuro Review of Systems Benign. Objective Physical Exam Last Vital Signs Date Time Temp Pulse Resp B/P (MAP) Pulse Ox O2 Delivery O2 Flow Rate FiO2 03/23/18 11:30 Room Air 03/23/18 11:30 97 03/23/18 11:30 47 18 03/23/18 09:00 136/78 03/23/18 08:00 97.1 97.1 Laboratory Tests Test 03/23/18 07:10 White Blood Count 7.4 K/UL (4.8-10.8) Red Blood Count 4.56 M/UL (4.20-5.40) Hemoglobin 11.9 G/DL (12.0-16.0) L Hematocrit 36.2 % (37.0-47.0) L Mean Corpuscular Volume 79 FL (80-99) L Mean Corpuscular Hemoglobin 26.1 PG (27.0-31.0) L Mean Corpuscular Hemoglobin Concent 32.9 G/DL (32.0-36.0) Red Cell Distribution Width 12.4 % (11.6-14.8) Platelet Count 268 K/UL (150-450) Mean Platelet Volume 7.1 FL (6.5-10.1) Neutrophils (%) (Auto) 67.1 % (45.0-75.0) Lymphocytes (%) (Auto) 22.9 % (20.0-45.0) Monocytes (%) (Auto) 6.6 % (1.0-10.0) Eosinophils (%) (Auto) 2.9 % (0.0-3.0) Basophils (%) (Auto) 0.5 % (0.0-2.0) Prothrombin Time 11.4 SEC (9.30-11.50) Prothromb Time International Ratio 1.1 (0.9-1.1) Activated Partial Thromboplast Time 38 SEC (23-33) H Sodium Level 139 MMOL/L (136-145) Potassium Level 3.3 MMOL/L (3.5-5.1) L Chloride Level 103 MMOL/L (98-107) Carbon Dioxide Level 32 MMOL/L (21-32) Anion Gap 4 mmol/L (5-15) L Blood Urea Nitrogen 16 mg/dL (7-18) Creatinine 1.0 MG/DL (0.55-1.30) Estimat Glomerular Filtration Rate mL/min (>60) Glucose Level 172 MG/DL (74-106) H Calcium Level 9.4 MG/DL (8.5-10.1) Phosphorus Level 2.6 MG/DL (2.5-4.9) Magnesium Level 1.1 MG/DL (1.8-2.4) L Total Bilirubin 0.4 MG/DL (0.2-1.0) Aspartate Amino Transf (AST/SGOT) 13 U/L (15-37) L Alanine Aminotransferase (ALT/SGPT) 14 U/L (12-78) Alkaline Phosphatase 75 U/L (46-116) Troponin I 0.000 ng/mL (0.000-0.056) C-Reactive Protein, Quantitative 0.9 mg/dL (0.00-0.90) Total Protein 6.9 G/DL (6.4-8.2) Albumin 2.8 G/DL (3.4-5.0) L Globulin 4.1 g/dL Albumin/Globulin Ratio 0.7 (1.0-2.7) L Triglycerides Level 98 MG/DL (30-150) Cholesterol Level 141 MG/DL (< 200) LDL Cholesterol 74 mg/dL (<100) HDL Cholesterol 60 MG/DL (40-60) Cholesterol/HDL Ratio 2.4 (3.3-4.4) L Thyroid Stimulating Hormone (TSH) 2.147 uiU/mL (0.358-3.740) Neurologic Exam Objective PHYSICAL EXAMINATION: GENERAL: She is a well-developed, well-nourished, pleasant lady, sitting up in a chair, in no acute distress. HEAD: Normocephalic and atraumatic. EENT: Examination benign. NECK: No neck rigidity was observed. SPINE: She had tenderness over the upper lumbar spine. However it was significantly less than yesterday. NEUROLOGIC EXAMINATION: MENTAL STATUS EXAMINATION: She was awake and alert. She was oriented to self. She thought she was at [facility]. She had no idea of what the date, month, or year was. She was able to recall 3/3 words immediately, but could not remember any of them in 1 minute and 3 minutes. She was unable to tell me who the present President was. Further mental status testing was impossible. SPEECH: She had no dysarthria. LANGUAGE: Could not be tested adequately. CRANIAL NERVE EXAMINATION: II: The visual patel were intact on confrontation testing. III, IV & : External ocular movements were full and the pupils 3 mm in diameter, equal, round, regular, and reactive to light. V: She had normal facial sensations and the temporales, masseters, and pterygoids functioned normally. VII: She had right peripheral seventh cranial nerve palsy. VIII: She was able to hear and had no nystagmus. IX: The palate moved symmetrically on phonation. X: She had no hoarseness of voice. XI: The sternocleidomastoids and trapezii functioned normally. XII: The tongue was in the midline without any fasciculations or atrophy. MOTOR SYSTEM: The tone was normal in all four extremities. Examination of muscle mass revealed no focal wasting. Examination of power was exceedingly difficult to test because of significant give-way weakness in all four extremities. SENSORY EXAMINATION: She responded appropriately to deep pain in all four extremities. She was unable to cooperate for the sensory modalities. REFLEXES: Trace+ and bilaterally symmetrical at the biceps, triceps, and brachioradialis. 0 at both knees and ankles. The plantar responses were flexor bilaterally. COORDINATION: She performed well on [id number] testing. She was unable to perform [id number] testing. STANCE: She stood up with support on one side. GAIT: She took a few steps with support on one side. Impression/Recommendations Diagnostic Impression 1. Ms. Shelia Whaley is an 87-year-old, right-handed, lady, who does have a past history of diabetes mellitus, atrial fibrillation, right Degroot' s palsy, episodes of loss of consciousness, gait problems, and a recent L2 spinal fracture, who was hospitalized for generalized weakness and loss of ability to walk. 2. She feels better today. She is sitting up in a chair comfortably. The mind is clearer. She is still forgetful. She is able to walk a little today. She continues to be cognitively impoverished. 3. On neurological examination, at this time, she exhibits significant problems with orientation, memory, and global cognitive dysfunction. She also has a right peripheral seventh cranial nerve palsy, complains of pain in her back but is less tender over the upper lumbar spine. She has globally diminished deep tendon reflexes in the upper extremities with loss of deep tendon reflexes in the lower extremities. She is able to stand and walk with help today. 4. 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 5. Her laboratory tests reveal that she is Vitamin B 12 deficient. 6. The patient's history and neurological examination are most compatible with inability to walk due to pain which has improved today with a decrease in the pain. 7. It is unclear as to whether the patient's cognitive dysfunction is old or new. The B12 deficiency could be contributing to it. Recommendations 1. Continue present management. 2. Vitamin B12 - 1000 mcg SC daily x 3 days and then monthly. 3. Continue Lidoderm patch to her lumbosacral area to help her with the back pain. 4. Mobilize with the help of physical and occupational therapy. 5. Observe. Yamilet Hyatt M.D., M.S.P.H. YAMILET HYATT Mar 23, 2018 12:40
--- NOTE | 2018-03-23 13:35 | Cardiology Report ---
APPROVED REPORT EKG Measurement Heart [id number] AL [id number] [id number] Normal sinus rhythm Left axis deviation Minimal voltage criteria for LVH, may be normal variant Possible Anterolateral infarct, age undetermined Abnormal ECG
[2018-03-23] MEDS ORDERED: Vitamin B12 1000mcg/ml Inj SUBQ SCH (14:00)
--- NOTE | 2018-03-23 15:36 | Cardiology Report ---
APPROVED REPORT EXAM: Two-dimensional and M-mode echocardiogram with Doppler and color Doppler. INDICATION LV function M-Mode DIMENSIONS IVSd1.0 (0.7-1.1cm)Left Atrium (MM)4.0 (1.6-4.0cm) LVDd3.8 (3.5-5.6cm)Aortic Root3.1 (2.0-3.7cm) PWd1.4 (0.7-1.1cm)Aortic Cusp Exc.1.4 (1.5-2.0cm) LVDs3.2 (2.5-4.0cm) PWs0.8 cm Normal left ventricular chamber size, systolic function and wall motion. Left ventricular ejection fraction estimated to be 60-65 %. Mild left ventricular hypertrophy by 2-D. No evidence of pericardial effusion. Left atrial size at upper limits of normal. Right cardiac chamber sizes are within normal limits. Focal aortic valve sclerosis with mildly reduced cusp excursion. Thickened mitral valve leaflets with normal excursion. Mitral annulus and aortic root calcification. Pulmonic valve not well visualized. Normal tricuspid valve structure. IVC at normal size with physiologic collapse. A color flow and spectral Doppler study was performed and revealed: Trace aortic regurgitation. Peak aortic valve gradient of 12 mm Hg and a mean of 7 mmHg. Trace mitral regurgitation. Mitral inflow velocities indicates possible pseudo normalization pattern implying moderately elevated left atrial pressure (Grade II). Trace tricuspid regurgitation. Tricuspid systolic velocities suggests peak right ventricular systolic pressure of 20 mmHg.
[2018-03-23 16:00] VITALS: BP 151/73
[2018-03-23] MEDS: D5 1/2NS 1,000 ML IV SCH ×2 (16:20→21:30)
[2018-03-23 20:00] VITALS: BP 140/76
[2018-03-23] MEDS ORDERED: Nitroglycerin Subl 0.4mg tab SL PRN (20:15)
[2018-03-23] MEDS ORDERED: Enalaprilat 2.5mg/2ml Inj IV PRN (20:30)
[2018-03-23] MEDS ORDERED: Ketorolac 30mg Inj IV PRN (20:30)
[2018-03-23] MEDS ORDERED: Albuterol/Ipratropium 3ml neb HHN PRN (20:30)
[2018-03-23] MEDS ORDERED: Morphine Sulfate 2mg/ml Inj(IV/IM USE ONLY) IVP PRN (21:00)
[2018-03-23] MEDS ORDERED: LORazepam 0.5mg tab ORAL PRN (21:30)
[2018-03-24] VITALS: BP 140/77
[2018-03-24 04:00] VITALS: BP 146/81
[2018-03-24 06:22] LABS: BASOPHILS % (AUTO) 0.8 % (0.0-2.0); EOSINOPHILS % (AUTO) 3.7 % (0.0-3.0); HEMATOCRIT 34.2 % (37.0-47.0); HEMOGLOBIN 11.6 G/DL (12.0-16.0); LYMPHOCYTES % (AUTO) 31.3 % (20.0-45.0); MEAN CORPUSCULAR VOLUME 80 FL (80-99); MONOCYTES % (AUTO) 7.2 % (1.0-10.0); NEUTROPHILS % (AUTO) 57.1 % (45.0-75.0); PLATELET COUNT 266 K/UL (150-450); RED BLOOD COUNT 4.27 M/UL (4.20-5.40); WHITE BLOOD COUNT 7.9 K/UL (4.8-10.8)
[2018-03-24] MEDS: metFORMIN 500mg tab ORAL SCH ×2 (06:32→17:04)
[2018-03-24] MEDS: NovoLOG Insulin Flexpen SUBQ SCH ×4 (06:33→20:51)
[2018-03-24 06:45] LABS: ANION GAP 4 mmol/L (5-15); BLOOD UREA NITROGEN 12 mg/dL (7-18); CALCIUM 9.2 MG/DL (8.5-10.1); CARBON DIOXIDE 30 MMOL/L (21-32); CHLORIDE 106 MMOL/L (98-107); CREATININE 0.9 MG/DL (0.55-1.30); SODIUM 140 MMOL/L (136-145)
[2018-03-24] MEDS ORDERED: dilTIAZem HCl 25mg/5ml Inj IV PRN (08:00)
[2018-03-24] MEDS ORDERED: Miralax 17gm pkt ORAL PRN (08:00)
--- NOTE | 2018-03-24 08:31 | Infectious Diseases Prog Note ---
Assessment/Plan Assessment/Plan 87 yo female with PMHx of DM, CAD, HTN and vertebral fracture who presents with Afib RVR, JOESPH and Positive UA. The patient presented to the ED on 03/22/18 with complaint of weakness and dizziness. # UTI UA positive but patient asymptomatic - Urine cultures negative # Weakness. # Atrial fibrillation with rapid ventricular response. # Renal insufficiency. # Diabetes. # Altered mental status. # Hypertension # CAD PLAN: - Monitor off antibiotics - 03/22/18 SP Ceftraixone #1 - Monitor CBC and Temps and Mental status - Supportive care. Thank you for consulting us for the care of this patient. We will continue to follow with you. Subjective Allergies: Coded Allergies: No Known Allergies (Unverified , 03/21/18) Subjective Patient A/O x 1 No acute events Objective Vital Signs Last 24 Hour Vital Signs Date Time Temp Pulse Resp B/P (MAP) Pulse Ox O2 Delivery O2 Flow Rate FiO2 03/24/18 04:00 97.3 95 18 146/81 (102) 99 97.3 03/24/18 00:00 98.1 90 20 140/77 (98) 98 98.1 03/23/18 21:00 Room Air 03/23/18 20:00 98.4 90 20 140/76 (97) 98 98.4 03/23/18 16:00 97.8 90 20 151/73 (99) 98 97.8 03/23/18 16:00 90 03/23/18 12:00 97.2 95 20 142/82 (102) 97 97.2 03/23/18 12:00 103 03/23/18 11:30 Room Air 03/23/18 11:30 97 Room Air 03/23/18 11:30 47 18 Room Air 03/23/18 09:00 94 136/78 03/23/18 09:00 Room Air Height (Feet): 5 Height (Inches): 4.00 Weight (Pounds): 165 Objective Gen: NAD, well appearing older woman, Pleasant HEENT: NCAT, MMM, EOMI, PERRL, No Oral lesion, no scleral icterus NECK: full range of motion, supple, no meningismus, No LAD, No JVD LUNGS: CTAB, No W/C, No Accessory muscle use CARDS: RRR, S1, S2, No M/R/G, ABD: Soft, NT, ND, No R/G, + BS Ext: C/C/E, Pulses 2+ B/L (DP, Rad), No joint pain or erythema : Deferred NEURO: A/O x 1 (Name only), Strength and Sensation Grossly intact Microbiology Date/Time Source Procedure Growth Status 03/22/18 00:00 Blood Blood Culture - Preliminary NO GROWTH AFTER 24 HOURS Resulted 03/21/18 23:45 Blood Blood Culture - Preliminary NO GROWTH AFTER 24 HOURS Resulted 03/22/18 00:00 Urine,Clean Catch Urine Culture - Final NO GROWTH AFTER 48 HOURS Complete Laboratory Tests Test 03/24/18 05:15 White Blood Count 7.9 K/UL (4.8-10.8) Red Blood Count 4.27 M/UL (4.20-5.40) Hemoglobin 11.6 G/DL (12.0-16.0) L Hematocrit 34.2 % (37.0-47.0) L Mean Corpuscular Volume 80 FL (80-99) Mean Corpuscular Hemoglobin 27.1 PG (27.0-31.0) Mean Corpuscular Hemoglobin Concent 33.7 G/DL (32.0-36.0) Red Cell Distribution Width 13.0 % (11.6-14.8) Platelet Count 266 K/UL (150-450) Mean Platelet Volume 7.5 FL (6.5-10.1) Neutrophils (%) (Auto) 57.1 % (45.0-75.0) Lymphocytes (%) (Auto) 31.3 % (20.0-45.0) Monocytes (%) (Auto) 7.2 % (1.0-10.0) Eosinophils (%) (Auto) 3.7 % (0.0-3.0) H Basophils (%) (Auto) 0.8 % (0.0-2.0) Sodium Level 140 MMOL/L (136-145) Potassium Level 4.0 MMOL/L (3.5-5.1) Chloride Level 106 MMOL/L (98-107) Carbon Dioxide Level 30 MMOL/L (21-32) Anion Gap 4 mmol/L (5-15) L Blood Urea Nitrogen 12 mg/dL (7-18) Creatinine 0.9 MG/DL (0.55-1.30) Estimat Glomerular Filtration Rate mL/min (>60) Glucose Level 148 MG/DL (74-106) H Calcium Level 9.2 MG/DL (8.5-10.1) Troponin I 0.000 ng/mL (0.000-0.056) Current Medications Medications (Trade) Dose Ordered Sig/Roman Route PRN Reason Start Time Stop Time Status Last Admin Dose Admin Acetaminophen (Tylenol) 650 mg Q4H PRN ORAL FEVER 03/23/18 20:30 04/22/18 20:29 Albuterol/ Ipratropium (Albuterol/ Ipratropium) 3 ml Q4H PRN HHN Shortness of Breath 03/23/18 20:30 03/28/18 20:29 Amlodipine Besylate (Norvasc) 10 mg DAILY ORAL 03/24/18 09:00 04/21/18 13:59 Aspirin (ASA) 162 mg DAILY ORAL 03/24/18 09:00 04/21/18 08:59 Cyanocobalamin (Vitamin B12) 1,000 mcg DAILY SUBQ 03/24/18 09:00 03/25/18 09:01 Dextrose (Dextrose 50%) 25 ml STAT PRN IV Hypoglycemia 03/23/18 20:30 04/22/18 20:29 Dextrose (Dextrose 50%) 50 ml STAT PRN IV Hypoglycemia 03/23/18 20:30 04/22/18 20:29 Dextrose/Sodium Chloride 1,000 ml @ 60 mls/hr [id number] IV 03/23/18 20:15 04/21/18 06:59 03/23/18 21:30 Enalaprilat (Vasotec) 2.5 mg Q6H PRN IV sbp more than 160 03/23/18 20:30 04/22/18 20:29 Heparin Sodium (Porcine) (Heparin 5000 units/ml) 5,000 units EVERY 12 HOURS SUBQ 03/23/18 21:00 04/21/18 08:59 03/23/18 21:39 Insulin Aspart (NovoLOG) BEFORE MEALS AND HS SUBQ 03/23/18 21:00 04/22/18 11:29 03/24/18 06:33 Ketorolac Tromethamine (Toradol 30mg) 30 mg Q6H PRN IV Moderate Pain (Pain Scale 4-6) 03/23/18 20:30 03/28/18 20:29 Lidocaine (Lidoderm 5% PATCH) 1 patch DAILY TDERMAL 03/24/18 09:00 04/21/18 18:59 Lorazepam (Ativan) 0.5 mg Q6H PRN ORAL For Anxiety 03/23/18 21:30 03/29/18 15:29 Memantine (Namenda) 5 mg BID ORAL 03/24/18 09:00 04/21/18 17:59 Metformin HCl (Glucophage) 500 mg BIAC ORAL 03/24/18 06:30 04/22/18 11:29 03/24/18 06:32 Morphine Sulfate (Morphine Sulfate) 2 mg Q4H PRN IVP Severe Pain (Pain Scale 7-10) 03/23/18 21:00 03/30/18 20:59 Nitroglycerin (Ntg) 0.4 mg Q5MIN PRN SL Prn Chest Pain 03/23/18 20:15 04/21/18 07:59 Ondansetron HCl (Zofran) 4 mg Q6H PRN IVP Nausea & Vomiting 03/23/18 21:00 04/22/18 20:59 Polyethylene Glycol (Miralax) 17 gm DAILYPRN PRN ORAL Constipation 03/24/18 08:00 04/21/18 07:59 Sitagliptin Phosphate (Januvia) 25 mg DAILY ORAL 03/24/18 09:00 04/22/18 08:59 Temazepam (Restoril) 15 mg HSPRN PRN ORAL Insomnia 03/23/18 21:00 03/29/18 20:59 Renan Gil M.D. Mar 24, 2018 08:31
--- NOTE | 2018-03-24 08:57 | General Progress Note ---
Assessment/Plan Problem List: (1) UTI (urinary tract infection) ICD Codes: N39.0 - Urinary tract infection, site not specified SNOMED: 92710978 (2) Atrial fibrillation ICD Codes: I48.91 - Unspecified atrial fibrillation SNOMED: 24462118 (3) Diabetes ICD Codes: E11.9 - Type 2 diabetes mellitus without complications SNOMED: 73345834 (4) Weak ICD Codes: R53.1 - Weakness SNOMED: 06398123 (5) HTN (hypertension) ICD Codes: I10 - Essential (primary) hypertension SNOMED: 65571244 (6) Altered mental status ICD Codes: R41.82 - Altered mental status, unspecified SNOMED: 328381340 (7) Episode of generalized weakness ICD Codes: R53.1 - Weakness SNOMED: 01242823 Status: stable, progressing Assessment/Plan ot pt diet abx cardio f/u cbc bmp am dc plan snf Subjective Constitutional: Reports: weakness Allergies: Coded Allergies: No Known Allergies (Unverified , 03/21/18) All Systems: reviewed and negative except above Subjective sleepy calm Objective Last 24 Hour Vital Signs Date Time Temp Pulse Resp B/P (MAP) Pulse Ox O2 Delivery O2 Flow Rate FiO2 03/24/18 04:00 97.3 95 18 146/81 (102) 99 97.3 03/24/18 00:00 98.1 90 20 140/77 (98) 98 98.1 03/23/18 21:00 Room Air 03/23/18 20:00 98.4 90 20 140/76 (97) 98 98.4 03/23/18 16:00 97.8 90 20 151/73 (99) 98 97.8 03/23/18 16:00 90 03/23/18 12:00 97.2 95 20 142/82 (102) 97 97.2 03/23/18 12:00 103 03/23/18 11:30 Room Air 03/23/18 11:30 97 Room Air 03/23/18 11:30 47 18 Room Air 03/23/18 09:00 94 136/78 03/23/18 09:00 Room Air Intake and Output 03/23/18 03/24/18 19:00 07:00 Intake Total 725 ml 820 ml Balance 725 ml 820 ml Intake Oral 485 ml 180 ml IV Total 240 ml 640 ml # Voids 1 3 Laboratory Tests 03/24/18 05:15: White Blood Count 7.9, Red Blood Count 4.27, Hemoglobin 11.6L, Hematocrit 34.2L , Mean Corpuscular Volume 80, Mean Corpuscular Hemoglobin 27.1, Mean Corpuscular Hemoglobin Concent 33.7, Red Cell Distribution Width 13.0, Platelet Count 266, Mean Platelet Volume 7.5, Neutrophils (%) (Auto) 57.1, Lymphocytes (% ) (Auto) 31.3, Monocytes (%) (Auto) 7.2, Eosinophils (%) (Auto) 3.7H, Basophils (%) (Auto) 0.8, Sodium Level 140, Potassium Level 4.0, Chloride Level 106, Carbon Dioxide Level 30, Anion Gap 4L, Blood Urea Nitrogen 12, Creatinine 0.9, Estimat Glomerular Filtration Rate , Glucose Level 148H, Calcium Level 9.2, Troponin I 0.000 Height (Feet): 5 Height (Inches): 4.00 Weight (Pounds): 165 General Appearance: lethargic EENT: normal ENT inspection Neck: normal alignment Cardiovascular: normal peripheral pulses, normal rate, regular rhythm Respiratory/Chest: chest wall non-tender, lungs clear, normal breath sounds Abdomen: normal bowel sounds, non tender, soft Extremities: normal inspection Edema: no edema noted Arm (L), no edema noted Arm (R), no edema noted Leg (L), no edema noted Leg (R), no edema noted Pedal (L), no edema noted Pedal (R), no edema noted Generalized Neurologic: motor weakness Skin: normal pigmentation, warm/dry Arley Red DO Mar 24, 2018 08:56
[2018-03-24 09:00] VITALS: BP 133/78
[2018-03-24] MEDS: sitaGLIPtin 25mg tab ORAL SCH (09:24)
[2018-03-24] MEDS: Aspirin Baby 81mg ORAL SCH (09:24)
[2018-03-24] MEDS: Memantine 5 MG TAB ORAL SCH ×2 (09:24→18:11)
[2018-03-24] MEDS: Vitamin B12 1000mcg/ml Inj SUBQ SCH (09:25)
[2018-03-24] MEDS: Heparin 5000 units/ml inj SUBQ SCH ×2 (09:37→20:50)
--- NOTE | 2018-03-24 10:06 | Cardiology Progress Note ---
Assessment/Plan Status: stable Assessment/Plan Assessment/Plan Problem List: (1) Altered mental status (2) Episode of generalized weakness (3) HTN (hypertension) (4) diastolic dysfunction HFpEF Plan: Fluids Pain control Physical therapy Continue norvasc 10 mg for hypertension -- BP controlled Echo reviewed- normal function, stage II diastolic dysfunction, no sign of fluid overload, hold diuresis Salt restriction Dispo planning Subjective Cardiovascular: Reports: no symptoms Respiratory: Reports: no symptoms Gastrointestinal/Abdominal: Reports: no symptoms Genitourinary: Reports: no symptoms Subjective no acute events, BP controlled, Echo Left ventricular ejection fraction estimated to be 60-65 %. Objective Last 24 Hour Vital Signs Date Time Temp Pulse Resp B/P (MAP) Pulse Ox O2 Delivery O2 Flow Rate FiO2 03/24/18 09:25 86 133/78 03/24/18 09:00 98.2 86 20 133/78 (96) 97 98.2 03/24/18 09:00 Room Air 03/24/18 04:00 97.3 95 18 146/81 (102) 99 97.3 03/24/18 00:00 98.1 90 20 140/77 (98) 98 98.1 03/23/18 21:00 Room Air 03/23/18 20:00 98.4 90 20 140/76 (97) 98 98.4 03/23/18 16:00 97.8 90 20 151/73 (99) 98 97.8 03/23/18 16:00 90 03/23/18 12:00 97.2 95 20 142/82 (102) 97 97.2 03/23/18 12:00 103 03/23/18 11:30 Room Air 03/23/18 11:30 97 Room Air 03/23/18 11:30 47 18 Room Air General Appearance: no apparent distress, alert EENT: PERRL/EOMI, normal ENT inspection Neck: non-tender, normal alignment Rhythm: NSR Cardiovascular: normal peripheral pulses, normal rate Respiratory/Chest: chest wall non-tender, lungs clear, normal breath sounds Abdomen: normal bowel sounds, non tender Extremities: normal range of motion, non-tender 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 II-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 grossly normal Intake and Output 03/23/18 03/24/18 19:00 07:00 Intake Total 725 ml 820 ml Balance 725 ml 820 ml Intake Oral 485 ml 180 ml IV Total 240 ml 640 ml # Voids 1 3 Laboratory Tests Test 03/24/18 05:15 White Blood Count 7.9 K/UL (4.8-10.8) Red Blood Count 4.27 M/UL (4.20-5.40) Hemoglobin 11.6 G/DL (12.0-16.0) L Hematocrit 34.2 % (37.0-47.0) L Mean Corpuscular Volume 80 FL (80-99) Mean Corpuscular Hemoglobin 27.1 PG (27.0-31.0) Mean Corpuscular Hemoglobin Concent 33.7 G/DL (32.0-36.0) Red Cell Distribution Width 13.0 % (11.6-14.8) Platelet Count 266 K/UL (150-450) Mean Platelet Volume 7.5 FL (6.5-10.1) Neutrophils (%) (Auto) 57.1 % (45.0-75.0) Lymphocytes (%) (Auto) 31.3 % (20.0-45.0) Monocytes (%) (Auto) 7.2 % (1.0-10.0) Eosinophils (%) (Auto) 3.7 % (0.0-3.0) H Basophils (%) (Auto) 0.8 % (0.0-2.0) Sodium Level 140 MMOL/L (136-145) Potassium Level 4.0 MMOL/L (3.5-5.1) Chloride Level 106 MMOL/L (98-107) Carbon Dioxide Level 30 MMOL/L (21-32) Anion Gap 4 mmol/L (5-15) L Blood Urea Nitrogen 12 mg/dL (7-18) Creatinine 0.9 MG/DL (0.55-1.30) Estimat Glomerular Filtration Rate mL/min (>60) Glucose Level 148 MG/DL (74-106) H Calcium Level 9.2 MG/DL (8.5-10.1) Troponin I 0.000 ng/mL (0.000-0.056) Microbiology Date/Time Source Procedure Growth Status 03/22/18 00:00 Blood Blood Culture - Preliminary NO GROWTH AFTER 24 HOURS Resulted 03/21/18 23:45 Blood Blood Culture - Preliminary NO GROWTH AFTER 24 HOURS Resulted 03/22/18 00:00 Urine,Clean Catch Urine Culture - Final NO GROWTH AFTER 48 HOURS Complete Renan Varela M.D. Mar 24, 2018 10:06
--- NOTE | 2018-03-24 11:14 | Pulmonology Progress Note ---
Assessment/Plan Problems: (1) Altered mental status (2) Episode of generalized weakness (3) HTN (hypertension) Assessment/Plan no new complians all reviewed echo reviewed pt/ot monitor BP dc planning to snif dvt prophylaxis Subjective ROS Limited/Unobtainable: No Constitutional: Reports: no symptoms HEENT: Repors: no symptoms Respiratory: Reports: no symptoms Allergies: Coded Allergies: No Known Allergies (Unverified , 03/21/18) Objective Last 24 Hour Vital Signs Date Time Temp Pulse Resp B/P (MAP) Pulse Ox O2 Delivery O2 Flow Rate FiO2 03/24/18 09:25 86 133/78 03/24/18 09:00 98.2 86 20 133/78 (96) 97 98.2 03/24/18 09:00 Room Air 03/24/18 04:00 97.3 95 18 146/81 (102) 99 97.3 03/24/18 00:00 98.1 90 20 140/77 (98) 98 98.1 03/23/18 21:00 Room Air 03/23/18 20:00 98.4 90 20 140/76 (97) 98 98.4 03/23/18 16:00 97.8 90 20 151/73 (99) 98 97.8 03/23/18 16:00 90 03/23/18 12:00 97.2 95 20 142/82 (102) 97 97.2 03/23/18 12:00 103 03/23/18 11:30 Room Air 03/23/18 11:30 97 Room Air 03/23/18 11:30 47 18 Room Air Intake and Output 03/23/18 03/24/18 19:00 07:00 Intake Total 725 ml 820 ml Balance 725 ml 820 ml Intake Oral 485 ml 180 ml IV Total 240 ml 640 ml # Voids 1 3 General Appearance: WD/WN HEENT: normocephalic Respiratory/Chest: chest wall non-tender, lungs clear Breasts: no masses Cardiovascular: normal peripheral pulses, normal rate Abdomen: normal bowel sounds, soft, non tender Genitourinary: normal external genitalia Skin: no rash Microbiology Date/Time Source Procedure Growth Status 03/22/18 00:00 Blood Blood Culture - Preliminary NO GROWTH AFTER 48 HOURS Resulted 03/21/18 23:45 Blood Blood Culture - Preliminary NO GROWTH AFTER 48 HOURS Resulted 03/22/18 00:00 Urine,Clean Catch Urine Culture - Final NO GROWTH AFTER 48 HOURS Complete Laboratory Tests 03/24/18 05:15: White Blood Count 7.9, Red Blood Count 4.27, Hemoglobin 11.6L, Hematocrit 34.2L , Mean Corpuscular Volume 80, Mean Corpuscular Hemoglobin 27.1, Mean Corpuscular Hemoglobin Concent 33.7, Red Cell Distribution Width 13.0, Platelet Count 266, Mean Platelet Volume 7.5, Neutrophils (%) (Auto) 57.1, Lymphocytes (% ) (Auto) 31.3, Monocytes (%) (Auto) 7.2, Eosinophils (%) (Auto) 3.7H, Basophils (%) (Auto) 0.8, Sodium Level 140, Potassium Level 4.0, Chloride Level 106, Carbon Dioxide Level 30, Anion Gap 4L, Blood Urea Nitrogen 12, Creatinine 0.9, Estimat Glomerular Filtration Rate , Glucose Level 148H, Calcium Level 9.2, Troponin I 0.000 Current Medications Medications (Trade) Dose Ordered Sig/Roman Route PRN Reason Start Time Stop Time Status Last Admin Dose Admin Acetaminophen (Tylenol) 650 mg Q4H PRN ORAL FEVER 03/23/18 20:30 04/22/18 20:29 Albuterol/ Ipratropium (Albuterol/ Ipratropium) 3 ml Q4H PRN HHN Shortness of Breath 03/23/18 20:30 03/28/18 20:29 Amlodipine Besylate (Norvasc) 10 mg DAILY ORAL 03/24/18 09:00 04/21/18 13:59 03/24/18 09:25 Aspirin (ASA) 162 mg DAILY ORAL 03/24/18 09:00 04/21/18 08:59 03/24/18 09:24 Cyanocobalamin (Vitamin B12) 1,000 mcg DAILY SUBQ 03/24/18 09:00 03/25/18 09:01 03/24/18 09:25 Dextrose (Dextrose 50%) 25 ml STAT PRN IV Hypoglycemia 03/23/18 20:30 04/22/18 20:29 Dextrose (Dextrose 50%) 50 ml STAT PRN IV Hypoglycemia 03/23/18 20:30 04/22/18 20:29 Dextrose/Sodium Chloride 1,000 ml @ 60 mls/hr [id number] IV 03/23/18 20:15 04/21/18 06:59 03/23/18 21:30 Enalaprilat (Vasotec) 2.5 mg Q6H PRN IV sbp more than 160 03/23/18 20:30 04/22/18 20:29 Heparin Sodium (Porcine) (Heparin 5000 units/ml) 5,000 units EVERY 12 HOURS SUBQ 03/23/18 21:00 04/21/18 08:59 03/24/18 09:37 Insulin Aspart (NovoLOG) BEFORE MEALS AND HS SUBQ 03/23/18 21:00 04/22/18 11:29 03/24/18 06:33 Ketorolac Tromethamine (Toradol 30mg) 30 mg Q6H PRN IV Moderate Pain (Pain Scale 4-6) 03/23/18 20:30 03/28/18 20:29 Lidocaine (Lidoderm 5% PATCH) 1 patch DAILY TDERMAL 03/24/18 09:00 04/21/18 18:59 03/24/18 09:26 Lorazepam (Ativan) 0.5 mg Q6H PRN ORAL For Anxiety 03/23/18 21:30 03/29/18 15:29 Memantine (Namenda) 5 mg BID ORAL 03/24/18 09:00 04/21/18 17:59 03/24/18 09:24 Metformin HCl (Glucophage) 500 mg BIAC ORAL 03/24/18 06:30 04/22/18 11:29 03/24/18 06:32 Morphine Sulfate (Morphine Sulfate) 2 mg Q4H PRN IVP Severe Pain (Pain Scale 7-10) 03/23/18 21:00 03/30/18 20:59 Nitroglycerin (Ntg) 0.4 mg Q5MIN PRN SL Prn Chest Pain 03/23/18 20:15 04/21/18 07:59 Ondansetron HCl (Zofran) 4 mg Q6H PRN IVP Nausea & Vomiting 03/23/18 21:00 04/22/18 20:59 Polyethylene Glycol (Miralax) 17 gm DAILYPRN PRN ORAL Constipation 03/24/18 08:00 04/21/18 07:59 Sitagliptin Phosphate (Januvia) 25 mg DAILY ORAL 03/24/18 09:00 04/22/18 08:59 03/24/18 09:24 Temazepam (Restoril) 15 mg HSPRN PRN ORAL Insomnia 03/23/18 21:00 03/29/18 20:59 Jaison Fine MD Mar 24, 2018 11:14
[2018-03-24 12:00] VITALS: BP 130/83
--- NOTE | 2018-03-24 12:39 | Neurology Progress Note ---
Interim History Interim History Interim History Ms. Whaley is very sleepy now. She was awake and brighter this morning and had her breakfast as per her nurse. She is lying in bed now. The mind is clearer. She is still forgetful. She was able to walk a little yesterday. She continues to be cognitively impoverished. Review of Systems Neuro Review of Systems Benign. Objective Physical Exam Last Vital Signs Date Time Temp Pulse Resp B/P (MAP) Pulse Ox O2 Delivery O2 Flow Rate FiO2 03/24/18 12:00 98.3 91 20 130/83 (99) 100 98.3 03/24/18 09:00 Room Air Laboratory Tests Test 03/24/18 05:15 White Blood Count 7.9 K/UL (4.8-10.8) Red Blood Count 4.27 M/UL (4.20-5.40) Hemoglobin 11.6 G/DL (12.0-16.0) L Hematocrit 34.2 % (37.0-47.0) L Mean Corpuscular Volume 80 FL (80-99) Mean Corpuscular Hemoglobin 27.1 PG (27.0-31.0) Mean Corpuscular Hemoglobin Concent 33.7 G/DL (32.0-36.0) Red Cell Distribution Width 13.0 % (11.6-14.8) Platelet Count 266 K/UL (150-450) Mean Platelet Volume 7.5 FL (6.5-10.1) Neutrophils (%) (Auto) 57.1 % (45.0-75.0) Lymphocytes (%) (Auto) 31.3 % (20.0-45.0) Monocytes (%) (Auto) 7.2 % (1.0-10.0) Eosinophils (%) (Auto) 3.7 % (0.0-3.0) H Basophils (%) (Auto) 0.8 % (0.0-2.0) Sodium Level 140 MMOL/L (136-145) Potassium Level 4.0 MMOL/L (3.5-5.1) Chloride Level 106 MMOL/L (98-107) Carbon Dioxide Level 30 MMOL/L (21-32) Anion Gap 4 mmol/L (5-15) L Blood Urea Nitrogen 12 mg/dL (7-18) Creatinine 0.9 MG/DL (0.55-1.30) Estimat Glomerular Filtration Rate mL/min (>60) Glucose Level 148 MG/DL (74-106) H Calcium Level 9.2 MG/DL (8.5-10.1) Troponin I 0.000 ng/mL (0.000-0.056) Neurologic Exam Objective PHYSICAL EXAMINATION: GENERAL: She is a well-developed, well-nourished, pleasant lady, lying in bed, in no acute distress. HEAD: Normocephalic and atraumatic. EENT: Examination benign. NECK: No neck rigidity was observed. SPINE: She had tenderness over the upper lumbar spine. NEUROLOGIC EXAMINATION: MENTAL STATUS EXAMINATION: She was drowsy but could be aroused. She was oriented to self. She thought she was at [facility]. She had no idea of what the date, month, or year was. Further mental status testing was impossible. SPEECH: She had no dysarthria. LANGUAGE: Could not be tested adequately. CRANIAL NERVE EXAMINATION: II: The visual patel were intact on confrontation testing. III, IV & : External ocular movements were full and the pupils 3 mm in diameter, equal, round, regular, and reactive to light. V: She had normal facial sensations and the temporales, masseters, and pterygoids functioned normally. VII: She had right peripheral seventh cranial nerve palsy. VIII: She was able to hear and had no nystagmus. IX: The palate moved symmetrically on phonation. X: She had no hoarseness of voice. XI: The sternocleidomastoids and trapezii functioned normally. XII: The tongue was in the midline without any fasciculations or atrophy. MOTOR SYSTEM: The tone was normal in all four extremities. Examination of muscle mass revealed no focal wasting. Examination of power was exceedingly difficult to test because of significant give-way weakness in all four extremities. SENSORY EXAMINATION: She responded appropriately to deep pain in all four extremities. She was unable to cooperate for the sensory modalities. REFLEXES: Trace+ and bilaterally symmetrical at the biceps, triceps, and brachioradialis. 0 at both knees and ankles. The plantar responses were flexor bilaterally. COORDINATION: She performed well on [id number] testing. She was unable to perform [id number] testing. STANCE & GAIT: Were deferred. Impression/Recommendations Diagnostic Impression 1. Ms. Shelia Nashelskaya is an 87-year-old, right-handed, lady, who does have a past history of diabetes mellitus, atrial fibrillation, right Degroot' s palsy, episodes of loss of consciousness, gait problems, and a recent L2 spinal fracture, who was hospitalized for generalized weakness and loss of ability to walk. 2. She feels very sleepy now. She was awake and brighter this morning and had her breakfast as per her nurse. She is lying in bed now. The mind is clearer. She is still forgetful. She was able to walk a little yesterday. She continues to be cognitively impoverished. 3. On neurological examination, at this time, she exhibits significant problems with orientation, memory, and global cognitive dysfunction. She also has a right peripheral seventh cranial nerve palsy, complains of pain in her back but is less tender over the upper lumbar spine. She has globally diminished deep tendon reflexes in the upper extremities with loss of deep tendon reflexes in the lower extremities. She is able to stand and walk with help today. 4. 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 5. Her laboratory tests reveal that she is Vitamin B 12 deficient. 6. The patient's history and neurological examination are most compatible with inability to walk due to pain which has improved today with a decrease in the pain. 7. It is unclear as to whether the patient's cognitive dysfunction is old or new. The B12 deficiency could be contributing to it. Recommendations 1. Continue present management. 2. Vitamin B12 - 1000 mcg SC daily x 3 days and then monthly. 3. Continue Lidoderm patch to her lumbosacral area to help her with the back pain. 4. Mobilize with the help of physical and occupational therapy. 5. Observe. Yamilet Hyatt M.D., M.S.P.H. YAMILET HYATT Mar 24, 2018 12:39
--- NOTE | 2018-03-24 14:23 | Physician Query ---
--------- THIS DOCUMENT IS A PERMANENT PART OF THE MEDICAL RECORD --------- PLEASE COMPLETE DOCUMENT BEFORE SIGNING Dear Dr. Fine Date: 03/24/2018 Solar Energy Systems Engineer/CDS Name: Arleen Davidson Solar Energy Systems Engineer / CDS Phone [phone] Exercise your independent professional judgment when responding to query. Question asked do not imply a particular answer is desired/expected. Clinical Documentation States:"Altered Mental Status" documented in consult and progress notes. Patient is admitted with UTI and generalized weakness. Clinical Findings Show: Lactic acid: 5.20, Glucose: 234 Please indicate the nature and chronicity of the condition below: [] Metabolic Encephalopathy [] Toxic Encephalopathy [] Toxic - Metabolic Encephalopathy [] Progressive Encephalopathy [] Encephalopathy, Other [] Other: [] Not Applicable Severity [] Acute [] Chronic [] Acute on Chronic [] Unable to determine Condition Present on Admission: [] Yes [] No [] Clinically Undeterminable Please also document in your Progress Notes and/or Discharge Summary and indicate if the condition was present on admission. MTDD
--- NOTE | 2018-03-24 15:45 | Emergency Room Report ---
History of Present Illness General Chief Complaint: Generalized Weakness Source: Patient Present Illness HPI The patient is an 87-year-old female brought in by EMS after increased generalized weakness.The patient gradual onset of symptoms. Patient was reportedly unable to be cared for by family members. The patient noted to have a rapid heartbeat on exam. History is markedly limited by the patient's mental status. Patient noted have increased generalized weakness. Allergies: Coded Allergies: No Known Allergies (Unverified , 03/21/18) Patient History Past Medical History: see triage record Last Menstrual Period: n/a Now: No Reviewed Nursing Documentation: PMH: Agreed; PSxH: Agreed Nursing Documentation-PMH Past Medical History: No History, Except For Hx Cardiac Problems: Yes - afib Review of Systems All Other Systems: negative except mentioned in HPI Physical Exam Vital Signs Date Time Temp Pulse Resp B/P (MAP) Pulse Ox O2 Delivery O2 Flow Rate FiO2 03/21/18 22:55 97.9 162 16 95/67 98 Room Air 97.9 Sp02 EP Interpretation: reviewed, normal General Appearance: normal inspection, alert, Chronically Ill Head: atraumatic ENT: normal ENT inspection, hearing grossly normal, normal voice Neck: normal inspection, full range of motion, supple, no bony tend Respiratory: normal inspection, lungs clear, normal breath sounds, no respiratory distress, no retraction, no wheezing Cardiovascular #1: regular rate, rhythm, no edema Gastrointestinal: normal inspection, normal bowel sounds, non tender, soft, no guarding, no hernia Genitourinary: no CVA tenderness Musculoskeletal: normal inspection, back normal, normal range of motion Neurologic: normal inspection, alert, oriented x3, responsive, 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 Differential diagnosis included was not limited to anemia, urinary tract infection, electrolyte abnormality, hypothyroidism, myocardial infarction, myasthenia gravis, dehydration, among others. Because of complexity of patient's case laboratory testing and imaging studies were ordered.CT the head was ordered due to patient's weakness and mental status. This showed atrophic changes without evident intracranial hemorrhage or CVA. The EKG interpreted by me showed atrial fibrillation with rapid ventricular response. The patient was given IV medications. Dr. Arley Red was contacted for inpatient managementdue to panel physician Laboratory Tests Test 03/23/18 07:10 03/24/18 05:15 White Blood Count 7.4 K/UL (4.8-10.8) 7.9 K/UL (4.8-10.8) Red Blood Count 4.56 M/UL (4.20-5.40) 4.27 M/UL (4.20-5.40) Hemoglobin 11.9 G/DL (12.0-16.0) L 11.6 G/DL (12.0-16.0) L Hematocrit 36.2 % (37.0-47.0) L 34.2 % (37.0-47.0) L Mean Corpuscular Volume 79 FL (80-99) L 80 FL (80-99) Mean Corpuscular Hemoglobin 26.1 PG (27.0-31.0) L 27.1 PG (27.0-31.0) Mean Corpuscular Hemoglobin Concent 32.9 G/DL (32.0-36.0) 33.7 G/DL (32.0-36.0) Red Cell Distribution Width 12.4 % (11.6-14.8) 13.0 % (11.6-14.8) Platelet Count 268 K/UL (150-450) 266 K/UL (150-450) Mean Platelet Volume 7.1 FL (6.5-10.1) 7.5 FL (6.5-10.1) Neutrophils (%) (Auto) 67.1 % (45.0-75.0) 57.1 % (45.0-75.0) Lymphocytes (%) (Auto) 22.9 % (20.0-45.0) 31.3 % (20.0-45.0) Monocytes (%) (Auto) 6.6 % (1.0-10.0) 7.2 % (1.0-10.0) Eosinophils (%) (Auto) 2.9 % (0.0-3.0) 3.7 % (0.0-3.0) H Basophils (%) (Auto) 0.5 % (0.0-2.0) 0.8 % (0.0-2.0) Prothrombin Time 11.4 SEC (9.30-11.50) Prothrombin Time INR 1.1 (0.9-1.1) PTT 38 SEC (23-33) H Sodium Level 139 MMOL/L (136-145) 140 MMOL/L (136-145) Potassium Level 3.3 MMOL/L (3.5-5.1) L 4.0 MMOL/L (3.5-5.1) Chloride Level 103 MMOL/L (98-107) 106 MMOL/L (98-107) Carbon Dioxide Level 32 MMOL/L (21-32) 30 MMOL/L (21-32) Anion Gap 4 mmol/L (5-15) L 4 mmol/L (5-15) L Blood Urea Nitrogen 16 mg/dL (7-18) 12 mg/dL (7-18) Creatinine 1.0 MG/DL (0.55-1.30) 0.9 MG/DL (0.55-1.30) Estimate Glomerular Filtration Rate mL/min (>60) mL/min (>60) Glucose Level 172 MG/DL (74-106) H 148 MG/DL (74-106) H Calcium Level 9.4 MG/DL (8.5-10.1) 9.2 MG/DL (8.5-10.1) Phosphorus Level 2.6 MG/DL (2.5-4.9) Magnesium Level 1.1 MG/DL (1.8-2.4) L Total Bilirubin 0.4 MG/DL (0.2-1.0) Aspartate Amino Transferase (AST) 13 U/L (15-37) L Alanine Aminotransferase (ALT) 14 U/L (12-78) Alkaline Phosphatase 75 U/L (46-116) Troponin I 0.000 ng/mL (0.000-0.056) 0.000 ng/mL (0.000-0.056) C-Reactive Protein, Quantitative 0.9 mg/dL (0.00-0.90) Total Protein 6.9 G/DL (6.4-8.2) Albumin 2.8 G/DL (3.4-5.0) L Globulin 4.1 g/dL Albumin/Globulin Ratio 0.7 (1.0-2.7) L Triglycerides Level 98 MG/DL (30-150) Cholesterol Level 141 MG/DL (< 200) LDL Cholesterol 74 mg/dL (<100) HDL Cholesterol 60 MG/DL (40-60) Cholesterol/HDL Ratio 2.4 (3.3-4.4) L Thyroid Stimulating Hormone (TSH) 2.147 uiU/mL (0.358-3.740) EKG Diagnostic Results Rate: tachycardiac Rhythm: other - afib ASA given to the pt in ED: Yes Rhythm Strip Diag. Results EP Interpretation: yes Rhythm: NSR, no PVC's Chest X-Ray Diagnostic Results Chest X-Ray Diagnostic Results : Chest X-Ray Ordered: No # of Views/Limited/Complete: 1 View EP Interpretation: No Interpretation: no consolidation, no effusion, no pneumothorax, no acute cardiopulmonary disease Impression: No acute disease Electronically Signed by: Electronically signed by Dr. Norris Dutton M.D. Last Vital Signs Date Time Temp Pulse Resp B/P (MAP) Pulse Ox O2 Delivery O2 Flow Rate FiO2 03/24/18 12:00 98.3 91 20 130/83 (99) 100 98.3 03/24/18 09:00 Room Air Status: unchanged Disposition: ADMITTED INPATIENT Condition: Serious Referrals: NOT CHOSEN IPA/,REFERRING (PCP) Norris Dutton MD Mar 24, 2018 15:45
[2018-03-24 16:00] VITALS: BP 125/57
[2018-03-24] MEDS: D5 1/2NS 1,000 ML IV SCH (17:04)
[2018-03-24 20:00] VITALS: BP 116/66
[2018-03-25] VITALS: BP 135/64
[2018-03-25 04:00] VITALS: BP 130/66
[2018-03-25] MEDS: D5 1/2NS 1,000 ML IV SCH ×2 (05:14→20:22)
[2018-03-25] MEDS: metFORMIN 500mg tab ORAL SCH ×2 (06:43→16:54)
[2018-03-25] MEDS: NovoLOG Insulin Flexpen SUBQ SCH ×4 (06:46→21:00)
[2018-03-25 06:50] LABS: BASOPHILS % (AUTO) 0.6 % (0.0-2.0); HEMATOCRIT 34.5 % (37.0-47.0); HEMOGLOBIN 11.3 G/DL (12.0-16.0); LYMPHOCYTES % (AUTO) 26.9 % (20.0-45.0); MEAN CORPUSCULAR VOLUME 81 FL (80-99); MONOCYTES % (AUTO) 7.1 % (1.0-10.0); NEUTROPHILS % (AUTO) 62.5 % (45.0-75.0); PLATELET COUNT 273 K/UL (150-450); RED BLOOD COUNT 4.25 M/UL (4.20-5.40); RED CELL DISTRIBUTION WIDTH 13.6 % (11.6-14.8); WHITE BLOOD COUNT 7.9 K/UL (4.8-10.8)
[2018-03-25 06:58] LABS: ANION GAP 7 mmol/L (5-15); BLOOD UREA NITROGEN 13 mg/dL (7-18); CALCIUM 9.1 MG/DL (8.5-10.1); CARBON DIOXIDE 29 MMOL/L (21-32); CHLORIDE 105 MMOL/L (98-107); POTASSIUM 3.8 MMOL/L (3.5-5.1); SODIUM 141 MMOL/L (136-145)
[2018-03-25 08:00] VITALS: BP 129/73
--- NOTE | 2018-03-25 08:55 | General Progress Note ---
Assessment/Plan Problem List: (1) UTI (urinary tract infection) ICD Codes: N39.0 - Urinary tract infection, site not specified SNOMED: 89484506 (2) Atrial fibrillation ICD Codes: I48.91 - Unspecified atrial fibrillation SNOMED: 75809393 (3) Diabetes ICD Codes: E11.9 - Type 2 diabetes mellitus without complications SNOMED: 28027387 (4) Weak ICD Codes: R53.1 - Weakness SNOMED: 63831528 (5) HTN (hypertension) ICD Codes: I10 - Essential (primary) hypertension SNOMED: 46158160 (6) Altered mental status ICD Codes: R41.82 - Altered mental status, unspecified SNOMED: 054838619 (7) Episode of generalized weakness ICD Codes: R53.1 - Weakness SNOMED: 90273314 Status: stable, progressing Assessment/Plan ot pt diet abx cardio f/u cbc bmp am dc to snf if clear Subjective Constitutional: Reports: weakness Allergies: Coded Allergies: No Known Allergies (Unverified , 03/21/18) All Systems: reviewed and negative except above Subjective sleepy calm Objective Last 24 Hour Vital Signs Date Time Temp Pulse Resp B/P (MAP) Pulse Ox O2 Delivery O2 Flow Rate FiO2 03/25/18 08:00 96.3 85 20 129/73 (91) 99 96.3 03/25/18 04:00 97.8 85 19 130/66 (87) 95 97.8 03/25/18 00:00 98.2 87 18 135/64 (87) 96 98.2 03/24/18 20:57 Room Air 03/24/18 20:00 97.9 89 20 116/66 (83) 96 97.9 03/24/18 20:00 Room Air 21 03/24/18 20:00 80 18 Room Air 21 03/24/18 20:00 96 Room Air 21 03/24/18 16:00 97.3 88 20 125/57 (79) 99 97.3 03/24/18 12:00 98.3 91 20 130/83 (99) 100 98.3 03/24/18 09:25 86 133/78 03/24/18 09:00 98.2 86 20 133/78 (96) 97 98.2 03/24/18 09:00 Room Air Intake and Output 03/24/18 03/25/18 19:00 07:00 Intake Total 940 ml 2784 ml Balance 940 ml 2784 ml Intake Oral 400 ml 240 ml IV Total 540 ml 2544 ml # Voids 4 3 Laboratory Tests 03/25/18 05:00: White Blood Count 7.9, Red Blood Count 4.25, Hemoglobin 11.3L, Hematocrit 34.5L , Mean Corpuscular Volume 81, Mean Corpuscular Hemoglobin 26.6L, Mean Corpuscular Hemoglobin Concent 32.7, Red Cell Distribution Width 13.6, Platelet Count 273, Mean Platelet Volume 7.6, Neutrophils (%) (Auto) 62.5, Lymphocytes (% ) (Auto) 26.9, Monocytes (%) (Auto) 7.1, Eosinophils (%) (Auto) 3.0, Basophils ( %) (Auto) 0.6, Sodium Level 141, Potassium Level 3.8, Chloride Level 105, Carbon Dioxide Level 29, Anion Gap 7, Blood Urea Nitrogen 13, Creatinine 1.0, Estimat Glomerular Filtration Rate , Glucose Level 133H, Calcium Level 9.1 Height (Feet): 5 Height (Inches): 4.00 Weight (Pounds): 165 General Appearance: lethargic EENT: normal ENT inspection Neck: normal alignment Cardiovascular: normal peripheral pulses, normal rate, regular rhythm Respiratory/Chest: chest wall non-tender, lungs clear, normal breath sounds Abdomen: normal bowel sounds, non tender, soft Extremities: normal inspection Edema: no edema noted Arm (L), no edema noted Arm (R), no edema noted Leg (L), no edema noted Leg (R), no edema noted Pedal (L), no edema noted Pedal (R), no edema noted Generalized Neurologic: motor weakness Skin: normal pigmentation, warm/dry Arley Red DO Mar 25, 2018 08:55
[2018-03-25] MEDS: Memantine 5 MG TAB ORAL SCH ×2 (09:30→17:33)
[2018-03-25] MEDS: sitaGLIPtin 25mg tab ORAL SCH (09:30)
[2018-03-25] MEDS: Aspirin Baby 81mg ORAL SCH (09:30)
[2018-03-25] MEDS: Vitamin B12 1000mcg/ml Inj SUBQ SCH (09:31)
[2018-03-25] MEDS: Heparin 5000 units/ml inj SUBQ SCH ×2 (09:32→20:20)
--- NOTE | 2018-03-25 10:29 | Cardiology Progress Note ---
Assessment/Plan Status: stable Assessment/Plan Assessment/Plan Problem List: (1) Altered mental status (2) Episode of generalized weakness (3) HTN (hypertension) (4) diastolic dysfunction HFpEF Plan: Fluids Pain control Physical therapy Continue norvasc 10 mg for hypertension -- BP controlled Echo reviewed- normal function, stage II diastolic dysfunction, no sign of fluid overload, hold diuresis Salt restriction Dispo planning Subjective Cardiovascular: Reports: no symptoms Respiratory: Reports: no symptoms Gastrointestinal/Abdominal: Reports: no symptoms Genitourinary: Reports: no symptoms Subjective no acute events, BP controlled, Echo Left ventricular ejection fraction estimated to be 60-65 %. Awaiting transfer to [facility] No complaints, tolerating PO. Vitals stable. Objective Last 24 Hour Vital Signs Date Time Temp Pulse Resp B/P (MAP) Pulse Ox O2 Delivery O2 Flow Rate FiO2 03/25/18 09:31 85 129/73 03/25/18 08:00 96.3 85 20 129/73 (91) 99 96.3 03/25/18 04:00 97.8 85 19 130/66 (87) 95 97.8 03/25/18 00:00 98.2 87 18 135/64 (87) 96 98.2 03/24/18 20:57 Room Air 03/24/18 20:00 97.9 89 20 116/66 (83) 96 97.9 03/24/18 20:00 Room Air 21 03/24/18 20:00 80 18 Room Air 21 03/24/18 20:00 96 Room Air 21 03/24/18 16:00 97.3 88 20 125/57 (79) 99 97.3 03/24/18 12:00 98.3 91 20 130/83 (99) 100 98.3 General Appearance: no apparent distress, alert EENT: PERRL/EOMI, normal ENT inspection Neck: non-tender, normal alignment, supple, normal inspection, no JVD Rhythm: NSR Cardiovascular: normal peripheral pulses, normal rate, regular rhythm Respiratory/Chest: chest wall non-tender, lungs clear Abdomen: normal bowel sounds, non tender Extremities: normal range of motion, non-tender 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5-10.1) Neutrophils (%) (Auto) 62.5 % (45.0-75.0) Lymphocytes (%) (Auto) 26.9 % (20.0-45.0) Monocytes (%) (Auto) 7.1 % (1.0-10.0) Eosinophils (%) (Auto) 3.0 % (0.0-3.0) Basophils (%) (Auto) 0.6 % (0.0-2.0) Sodium Level 141 MMOL/L (136-145) Potassium Level 3.8 MMOL/L (3.5-5.1) Chloride Level 105 MMOL/L (98-107) Carbon Dioxide Level 29 MMOL/L (21-32) Anion Gap 7 mmol/L (5-15) Blood Urea Nitrogen 13 mg/dL (7-18) Creatinine 1.0 MG/DL (0.55-1.30) Estimat Glomerular Filtration Rate mL/min (>60) Glucose Level 133 MG/DL (74-106) H Calcium Level 9.1 MG/DL (8.5-10.1) Renan Varela M.D. Mar 25, 2018 10:29
--- NOTE | 2018-03-25 11:53 | Neurology Progress Note ---
Interim History Interim History Interim History Ms. Whaley is awake and alert today. She is sitting up in a chair. Her back pain is better. The mind is clearer. She is still forgetful. She was able to transfer from bed to chair but is still unable to walk. She continues to be cognitively impoverished. Review of Systems Neuro Review of Systems Benign. Objective Physical Exam Last Vital Signs Date Time Temp Pulse Resp B/P (MAP) Pulse Ox O2 Delivery O2 Flow Rate FiO2 03/25/18 09:31 85 129/73 03/25/18 09:00 Room Air 03/25/18 08:00 96.3 20 99 96.3 03/24/18 20:00 21 Laboratory Tests Test 03/25/18 05:00 White Blood Count 7.9 K/UL (4.8-10.8) Red Blood Count 4.25 M/UL (4.20-5.40) Hemoglobin 11.3 G/DL (12.0-16.0) L Hematocrit 34.5 % (37.0-47.0) L Mean Corpuscular Volume 81 FL (80-99) Mean Corpuscular Hemoglobin 26.6 PG (27.0-31.0) L Mean Corpuscular Hemoglobin Concent 32.7 G/DL (32.0-36.0) Red Cell Distribution Width 13.6 % (11.6-14.8) Platelet Count 273 K/UL (150-450) Mean Platelet Volume 7.6 FL (6.5-10.1) Neutrophils (%) (Auto) 62.5 % (45.0-75.0) Lymphocytes (%) (Auto) 26.9 % (20.0-45.0) Monocytes (%) (Auto) 7.1 % (1.0-10.0) Eosinophils (%) (Auto) 3.0 % (0.0-3.0) Basophils (%) (Auto) 0.6 % (0.0-2.0) Sodium Level 141 MMOL/L (136-145) Potassium Level 3.8 MMOL/L (3.5-5.1) Chloride Level 105 MMOL/L (98-107) Carbon Dioxide Level 29 MMOL/L (21-32) Anion Gap 7 mmol/L (5-15) Blood Urea Nitrogen 13 mg/dL (7-18) Creatinine 1.0 MG/DL (0.55-1.30) Estimat Glomerular Filtration Rate mL/min (>60) Glucose Level 133 MG/DL (74-106) H Calcium Level 9.1 MG/DL (8.5-10.1) Neurologic Exam Objective PHYSICAL EXAMINATION: GENERAL: She is a well-developed, well-nourished, pleasant lady, lying in bed, in no acute distress. HEAD: Normocephalic and atraumatic. EENT: Examination benign. NECK: No neck rigidity was observed. SPINE: She had tenderness over the upper lumbar spine. NEUROLOGIC EXAMINATION: MENTAL STATUS EXAMINATION: She was awake and alert. She was oriented to self. She thought she was at [facility]. She had no idea of what the date, month, or year was. She was able to recall 3/3 words but could only remember 1/3 in 1 and 3 minutes. Further mental status testing was impossible. SPEECH: She had no dysarthria. LANGUAGE: Could not be tested adequately. CRANIAL NERVE EXAMINATION: II: The visual patel were intact on confrontation testing. III, IV & : External ocular movements were full and the pupils 3 mm in diameter, equal, round, regular, and reactive to light. V: She had normal facial sensations and the temporales, masseters, and pterygoids functioned normally. VII: She had right peripheral seventh cranial nerve palsy. VIII: She was able to hear and had no nystagmus. IX: The palate moved symmetrically on phonation. X: She had no hoarseness of voice. XI: The sternocleidomastoids and trapezii functioned normally. XII: The tongue was in the midline without any fasciculations or atrophy. MOTOR SYSTEM: The tone was normal in all four extremities. Examination of muscle mass revealed no focal wasting. Examination of power was exceedingly difficult to test because of significant give-way weakness in all four extremities. SENSORY EXAMINATION: She responded appropriately to deep pain in all four extremities. She was unable to cooperate for the sensory modalities. REFLEXES: Trace+ and bilaterally symmetrical at the biceps, triceps, and brachioradialis. 0 at both knees and ankles. The plantar responses were flexor bilaterally. COORDINATION: She performed well on [id number] testing. She was unable to perform [id number] testing. STANCE & GAIT: She needed support to stand, and could not walk even with support. Impression/Recommendations Diagnostic Impression 1. Ms. Shelia Whaley is an 87-year-old, right-handed, lady, who does have a past history of diabetes mellitus, atrial fibrillation, right Degroot' s palsy, episodes of loss of consciousness, gait problems, and a recent L2 spinal fracture, who was hospitalized for generalized weakness and loss of ability to walk. 2. She is awake and alert today. She is sitting up in a chair. Her back pain is better. The mind is clearer. She is still forgetful. She was able to transfer from bed to chair but is still unable to walk. She continues to be cognitively impoverished. 3. On neurological examination, at this time, she exhibits significant problems with orientation, memory, and global cognitive dysfunction. She also has a right peripheral seventh cranial nerve palsy, she has globally diminished deep tendon reflexes in the upper extremities with loss of deep tendon reflexes in the lower extremities. She is able to stand but cannot walk even with support. The back pain and tenderness has resolved. 4. 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 5. Her laboratory tests reveal that she is Vitamin B 12 deficient. 6. The patient's history and neurological examination are most compatible with inability to walk due to pain and weakness. She has improved with a decrease in the pain, but is still unable to walk. 7. It is unclear as to whether the patient's cognitive dysfunction is old or new. The B12 deficiency could be contributing to it. Recommendations 1. Continue present management. 2. Vitamin B12 - 1000 mcg SC monthly. 3. Continue Lidoderm patch to her lumbosacral area to help her with the back pain. 4. Mobilize with the help of physical and occupational therapy. 5. Observe. Yamilet Morelos M.D., M.S.P.YAMILET ROLAND Mar 25, 2018 11:53
[2018-03-25 12:00] VITALS: BP 123/67
--- NOTE | 2018-03-25 13:53 | Pulmonology Progress Note ---
Assessment/Plan Problems: (1) Altered mental status (2) Episode of generalized weakness (3) HTN (hypertension) Assessment/Plan no new complians all reviewed echo reviewed pt/ot monitor BP dvt prophylaxis dc planning in progress Subjective ROS Limited/Unobtainable: No Constitutional: Reports: no symptoms HEENT: Repors: no symptoms Respiratory: Reports: no symptoms Allergies: Coded Allergies: No Known Allergies (Unverified , 03/21/18) Objective Last 24 Hour Vital Signs Date Time Temp Pulse Resp B/P (MAP) Pulse Ox O2 Delivery O2 Flow Rate FiO2 03/25/18 12:00 97.0 92 20 123/67 (85) 98 97.0 03/25/18 09:37 76 16 Room Air 21 03/25/18 09:31 85 129/73 03/25/18 09:00 Room Air 03/25/18 08:00 96.3 85 20 129/73 (91) 99 96.3 03/25/18 04:00 97.8 85 19 130/66 (87) 95 97.8 03/25/18 00:00 98.2 87 18 135/64 (87) 96 98.2 03/24/18 20:57 Room Air 03/24/18 20:00 97.9 89 20 116/66 (83) 96 97.9 03/24/18 20:00 Room Air 21 03/24/18 20:00 80 18 Room Air 21 03/24/18 20:00 96 Room Air 21 03/24/18 16:00 97.3 88 20 125/57 (79) 99 97.3 Intake and Output 03/24/18 03/25/18 19:00 07:00 Intake Total 940 ml 2844 ml Balance 940 ml 2844 ml Intake Oral 400 ml 240 ml IV Total 540 ml 2604 ml # Voids 4 3 General Appearance: WD/WN HEENT: normocephalic Respiratory/Chest: chest wall non-tender, normal breath sounds Cardiovascular: normal peripheral pulses, normal rate Abdomen: normal bowel sounds, soft, non tender Genitourinary: normal external genitalia Skin: no rash Laboratory Tests 03/25/18 05:00: White Blood Count 7.9, Red Blood Count 4.25, Hemoglobin 11.3L, Hematocrit 34.5L , Mean Corpuscular Volume 81, Mean Corpuscular Hemoglobin 26.6L, Mean Corpuscular Hemoglobin Concent 32.7, Red Cell Distribution Width 13.6, Platelet Count 273, Mean Platelet Volume 7.6, Neutrophils (%) (Auto) 62.5, Lymphocytes (% ) (Auto) 26.9, Monocytes (%) (Auto) 7.1, Eosinophils (%) (Auto) 3.0, Basophils ( %) (Auto) 0.6, Sodium Level 141, Potassium Level 3.8, Chloride Level 105, Carbon Dioxide Level 29, Anion Gap 7, Blood Urea Nitrogen 13, Creatinine 1.0, Estimat Glomerular Filtration Rate , Glucose Level 133H, Calcium Level 9.1 Current Medications Medications (Trade) Dose Ordered Sig/Roman Route PRN Reason Start Time Stop Time Status Last Admin Dose Admin Acetaminophen (Tylenol) 650 mg Q4H PRN ORAL FEVER 03/23/18 20:30 04/22/18 20:29 Albuterol/ Ipratropium (Albuterol/ Ipratropium) 3 ml Q4H PRN HHN Shortness of Breath 03/23/18 20:30 03/28/18 20:29 Amlodipine Besylate (Norvasc) 10 mg DAILY ORAL 03/24/18 09:00 04/21/18 13:59 03/25/18 09:31 Aspirin (ASA) 162 mg DAILY ORAL 03/24/18 09:00 04/21/18 08:59 03/25/18 09:30 Dextrose (Dextrose 50%) 25 ml STAT PRN IV Hypoglycemia 03/23/18 20:30 04/22/18 20:29 Dextrose (Dextrose 50%) 50 ml STAT PRN IV Hypoglycemia 03/23/18 20:30 04/22/18 20:29 Dextrose/Sodium Chloride 1,000 ml @ 60 mls/hr [id number] IV 03/23/18 20:15 04/21/18 06:59 03/25/18 05:14 Enalaprilat (Vasotec) 2.5 mg Q6H PRN IV sbp more than 160 03/23/18 20:30 04/22/18 20:29 Heparin Sodium (Porcine) (Heparin 5000 units/ml) 5,000 units EVERY 12 HOURS SUBQ 03/23/18 21:00 04/21/18 08:59 03/25/18 09:32 Insulin Aspart (NovoLOG) BEFORE MEALS AND HS SUBQ 03/23/18 21:00 04/22/18 11:29 03/25/18 06:46 Ketorolac Tromethamine (Toradol 30mg) 30 mg Q6H PRN IV Moderate Pain (Pain Scale 4-6) 03/23/18 20:30 03/28/18 20:29 Lidocaine (Lidoderm 5% PATCH) 1 patch DAILY TDERMAL 03/24/18 09:00 04/21/18 18:59 03/25/18 09:31 Lorazepam (Ativan) 0.5 mg Q6H PRN ORAL For Anxiety 03/23/18 21:30 03/29/18 15:29 Memantine (Namenda) 5 mg BID ORAL 03/24/18 09:00 04/21/18 17:59 03/25/18 09:30 Metformin HCl (Glucophage) 500 mg BIAC ORAL 03/24/18 06:30 04/22/18 11:29 03/25/18 06:43 Morphine Sulfate (Morphine Sulfate) 2 mg Q4H PRN IVP Severe Pain (Pain Scale 7-10) 03/23/18 21:00 03/30/18 20:59 Nitroglycerin (Ntg) 0.4 mg Q5MIN PRN SL Prn Chest Pain 03/23/18 20:15 04/21/18 07:59 Ondansetron HCl (Zofran) 4 mg Q6H PRN IVP Nausea & Vomiting 03/23/18 21:00 04/22/18 20:59 Polyethylene Glycol (Miralax) 17 gm DAILYPRN PRN ORAL Constipation 03/24/18 08:00 04/21/18 07:59 Sitagliptin Phosphate (Januvia) 25 mg DAILY ORAL 03/24/18 09:00 04/22/18 08:59 03/25/18 09:30 Temazepam (Restoril) 15 mg HSPRN PRN ORAL Insomnia 03/23/18 21:00 03/29/18 20:59 Jaison Fine MD Mar 25, 2018 13:53
[2018-03-25 15:55] VITALS: BP 123/70
[2018-03-25 20:00] VITALS: BP 136/65
[2018-03-26] VITALS: BP 125/64
[2018-03-26 04:00] VITALS: BP 122/66
[2018-03-26] MEDS: NovoLOG Insulin Flexpen SUBQ SCH ×2 (06:30→11:30)
[2018-03-26] MEDS: metFORMIN 500mg tab ORAL SCH (06:44)
[2018-03-26 08:00] VITALS: BP 128/66
[2018-03-26] MEDS: sitaGLIPtin 25mg tab ORAL SCH ×2 (08:35→08:46)
[2018-03-26] MEDS: Aspirin Baby 81mg ORAL SCH ×2 (08:35→08:46)
[2018-03-26] MEDS: Memantine 5 MG TAB ORAL SCH ×2 (08:38→08:45)
[2018-03-26] MEDS: Heparin 5000 units/ml inj SUBQ SCH (08:39)
--- NOTE | 2018-03-26 09:16 | Infectious Diseases Prog Note ---
Assessment/Plan Assessment/Plan 87 yo female with PMHx of DM, CAD, HTN and vertebral fracture who presents with Afib RVR, JOESPH and Positive UA. The patient presented to the ED on 03/22/18 with complaint of weakness and dizziness. # UTI UA positive but patient asymptomatic - Urine cultures negative # Weakness. # Atrial fibrillation with rapid ventricular response. # Renal insufficiency. # Diabetes. # Altered mental status. # Hypertension # CAD PLAN: - Continue to monitor off antibiotics - 03/22/18 SP Ceftraixone #1 - Monitor CBC and Temps and Mental status - Supportive care. Thank you for consulting us for the care of this patient. We will continue to follow with you. Subjective Allergies: Coded Allergies: No Known Allergies (Unverified , 03/21/18) Subjective Patient afebrile No acute events Objective Vital Signs Last 24 Hour Vital Signs Date Time Temp Pulse Resp B/P (MAP) Pulse Ox O2 Delivery O2 Flow Rate FiO2 03/26/18 08:00 97.6 87 19 128/66 (86) 97 97.6 03/26/18 04:00 97.3 94 19 122/66 (84) 98 97.3 03/26/18 00:00 97.8 95 17 125/64 (84) 97 97.8 03/25/18 21:00 Room Air 03/25/18 20:00 97.2 94 18 136/65 (88) 98 97.2 03/25/18 15:55 97.7 92 18 123/70 (87) 97 97.7 03/25/18 12:00 97.0 92 20 123/67 (85) 98 97.0 03/25/18 09:37 76 16 Room Air 21 03/25/18 09:31 85 129/73 Height (Feet): 5 Height (Inches): 4.00 Weight (Pounds): 165 Objective Gen: NAD, well appearing older woman, Pleasant HEENT: NCAT, MMM, EOMI LUNGS: CTAB, No W/C, No Accessory muscle use CARDS: RRR, S1, S2, No M/R/G, ABD: Soft, NT, ND, No R/G, + BS Ext: C/C/E, Pulses 2+ B/L (DP, Rad), No joint pain or erythema NEURO: A/O x 1 (Name only), Strength and Sensation Grossly intact Current Medications Medications (Trade) Dose Ordered Sig/Roman Route PRN Reason Start Time Stop Time Status Last Admin Dose Admin Acetaminophen (Tylenol) 650 mg Q4H PRN ORAL FEVER 03/23/18 20:30 04/22/18 20:29 Albuterol/ Ipratropium (Albuterol/ Ipratropium) 3 ml Q4H PRN HHN Shortness of Breath 03/23/18 20:30 03/28/18 20:29 Amlodipine Besylate (Norvasc) 10 mg DAILY ORAL 03/24/18 09:00 04/21/18 13:59 03/25/18 09:31 Aspirin (ASA) 162 mg DAILY ORAL 03/24/18 09:00 04/21/18 08:59 03/25/18 09:30 Dextrose (Dextrose 50%) 25 ml STAT PRN IV Hypoglycemia 03/23/18 20:30 04/22/18 20:29 Dextrose (Dextrose 50%) 50 ml STAT PRN IV Hypoglycemia 03/23/18 20:30 04/22/18 20:29 Dextrose/Sodium Chloride 1,000 ml @ 60 mls/hr [id number] IV 03/23/18 20:15 04/21/18 06:59 03/25/18 20:22 Enalaprilat (Vasotec) 2.5 mg Q6H PRN IV sbp more than 160 03/23/18 20:30 04/22/18 20:29 Heparin Sodium (Porcine) (Heparin 5000 units/ml) 5,000 units EVERY 12 HOURS SUBQ 03/23/18 21:00 04/21/18 08:59 03/26/18 08:39 Insulin Aspart (NovoLOG) BEFORE MEALS AND HS SUBQ 03/23/18 21:00 04/22/18 11:29 03/25/18 06:46 Ketorolac Tromethamine (Toradol 30mg) 30 mg Q6H PRN IV Moderate Pain (Pain Scale 4-6) 03/23/18 20:30 03/28/18 20:29 Lidocaine (Lidoderm 5% PATCH) 1 patch DAILY TDERMAL 03/24/18 09:00 04/21/18 18:59 03/26/18 08:36 Lorazepam (Ativan) 0.5 mg Q6H PRN ORAL For Anxiety 03/23/18 21:30 03/29/18 15:29 Memantine (Namenda) 5 mg BID ORAL 03/24/18 09:00 04/21/18 17:59 03/25/18 17:33 Metformin HCl (Glucophage) 500 mg BIAC ORAL 03/24/18 06:30 04/22/18 11:29 03/26/18 06:44 Morphine Sulfate (Morphine Sulfate) 2 mg Q4H PRN IVP Severe Pain (Pain Scale 7-10) 03/23/18 21:00 03/30/18 20:59 Nitroglycerin (Ntg) 0.4 mg Q5MIN PRN SL Prn Chest Pain 03/23/18 20:15 04/21/18 07:59 Ondansetron HCl (Zofran) 4 mg Q6H PRN IVP Nausea & Vomiting 03/23/18 21:00 04/22/18 20:59 Polyethylene Glycol (Miralax) 17 gm DAILYPRN PRN ORAL Constipation 03/24/18 08:00 04/21/18 07:59 Sitagliptin Phosphate (Januvia) 25 mg DAILY ORAL 03/24/18 09:00 04/22/18 08:59 03/25/18 09:30 Temazepam (Restoril) 15 mg HSPRN PRN ORAL Insomnia 03/23/18 21:00 03/29/18 20:59 Renan Gil M.D. Mar 26, 2018 09:16
--- NOTE | 2018-03-26 10:59 | Neurology Progress Note ---
Interim History Interim History Interim History Ms. Whaley feels well. She is awake and alert. She is sitting up in a chair. Her back pain is better. The mind is clearer. She is still forgetful. She was able to transfer from bed to chair easily. She is still unable to walk well. She continues to be cognitively impoverished. Review of Systems Neuro Review of Systems Benign. Objective Physical Exam Last Vital Signs Date Time Temp Pulse Resp B/P (MAP) Pulse Ox O2 Delivery O2 Flow Rate FiO2 03/26/18 09:25 Room Air 03/26/18 08:00 97.6 87 19 128/66 (86) 97 97.6 03/25/18 09:37 21 Neurologic Exam Objective PHYSICAL EXAMINATION: GENERAL: She is a well-developed, well-nourished, pleasant lady, lying in bed, in no acute distress. HEAD: Normocephalic and atraumatic. EENT: Examination benign. NECK: No neck rigidity was observed. SPINE: She had tenderness over the upper lumbar spine. NEUROLOGIC EXAMINATION: MENTAL STATUS EXAMINATION: She was awake and alert. She was oriented to self. She thought she was at [facility]. She had no idea of what the date, month, or year was. She was able to recall 3/3 words but could only remember 1/3 in 1 and 3 minutes. She was unable to tell me who the present of prior [place] presidents are. Further mental status testing was impossible. SPEECH: She had no dysarthria. LANGUAGE: Could not be tested adequately. CRANIAL NERVE EXAMINATION: II: The visual patel were intact on confrontation testing. III, IV & : External ocular movements were full and the pupils 3 mm in diameter, equal, round, regular, and reactive to light. V: She had normal facial sensations and the temporales, masseters, and pterygoids functioned normally. VII: She had right peripheral seventh cranial nerve palsy. VIII: She was able to hear and had no nystagmus. IX: The palate moved symmetrically on phonation. X: She had no hoarseness of voice. XI: The sternocleidomastoids and trapezii functioned normally. XII: The tongue was in the midline without any fasciculations or atrophy. MOTOR SYSTEM: The tone was normal in all four extremities. Examination of muscle mass revealed no focal wasting. Examination of power was exceedingly difficult to test because of significant give-way weakness in all four extremities. SENSORY EXAMINATION: She responded appropriately to deep pain in all four extremities. She was unable to cooperate for the sensory modalities. REFLEXES: Trace+ and bilaterally symmetrical at the biceps, triceps, and brachioradialis. 0 at both knees and ankles. The plantar responses were flexor bilaterally. COORDINATION: She performed well on [id number] testing. She was unable to perform [id number] testing. STANCE: She needed support to stand. GAIT: She tool a few steps with support. Impression/Recommendations Diagnostic Impression 1. Ms. Shelia Whaley is an 87-year-old, right-handed, lady, who does have a past history of diabetes mellitus, atrial fibrillation, right Degroot' s palsy, episodes of loss of consciousness, gait problems, and a recent L2 spinal fracture, who was hospitalized for generalized weakness and loss of ability to walk. 2. She feels well. She is awake and alert. She is sitting up in a chair. Her back pain is better. The mind is clearer. She is still forgetful. She was able to transfer from bed to chair easily. She is still unable to walk well. She continues to be cognitively impoverished. 3. On neurological examination, at this time, she exhibits significant problems with orientation, memory, and global cognitive dysfunction. She also has a right peripheral seventh cranial nerve palsy, she has globally diminished deep tendon reflexes in the upper extremities with loss of deep tendon reflexes in the lower extremities. She is able to stand but walking is still difficult even with support. The back pain and tenderness has resolved. 4. 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 5. Her laboratory tests reveal that she is Vitamin B 12 deficient. 6. The patient's history and neurological examination are most compatible with inability to walk due to pain and weakness. She has improved with a decrease in the pain, but walking is still difficult. 7. 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 The B12 deficiency could be contributing to it. Recommendations 1. Continue present management. 2. Vitamin B12 - 1000 mcg SC monthly. 3. Continue Lidoderm patch to her lumbosacral area to help her with the back pain. 4. Mobilize with the help of physical and occupational therapy. 5. Observe. Yamilet Hyatt M.D., M.S.P.H. YAMILET HYATT Mar 26, 2018 10:59
[2018-03-26 12:00] VITALS: BP 154/82
--- NOTE | 2018-03-26 12:55 | Pulmonology Progress Note ---
Assessment/Plan Problems: (1) Altered mental status (2) Episode of generalized weakness (3) HTN (hypertension) Assessment/Plan no new complians all reviewed echo reviewed pt/ot monitor BP dvt prophylaxis dc planning in progress pt got accepted at [facility] Subjective ROS Limited/Unobtainable: No Constitutional: Reports: no symptoms HEENT: Repors: no symptoms Respiratory: Reports: no symptoms Cardiovascular: Reports: no symptoms Allergies: Coded Allergies: No Known Allergies (Unverified , 03/21/18) Objective Last 24 Hour Vital Signs Date Time Temp Pulse Resp B/P (MAP) Pulse Ox O2 Delivery O2 Flow Rate FiO2 03/26/18 09:25 Room Air 03/26/18 08:00 97.6 87 19 128/66 (86) 97 97.6 03/26/18 04:00 97.3 94 19 122/66 (84) 98 97.3 03/26/18 00:00 97.8 95 17 125/64 (84) 97 97.8 03/25/18 21:00 Room Air 03/25/18 20:00 97.2 94 18 136/65 (88) 98 97.2 03/25/18 15:55 97.7 92 18 123/70 (87) 97 97.7 Intake and Output 03/25/18 03/26/18 19:00 07:00 Intake Total 960 ml 820 ml Balance 960 ml 820 ml Intake Oral 240 ml 100 ml IV Total 720 ml 720 ml # Voids 3 3 General Appearance: WD/WN HEENT: normocephalic, atraumatic Respiratory/Chest: chest wall non-tender, normal breath sounds Breasts: no masses Cardiovascular: normal rate Abdomen: normal bowel sounds, no organomegaly Extremities: no cyanosis Skin: no rash Current Medications Medications (Trade) Dose Ordered Sig/Roman Route PRN Reason Start Time Stop Time Status Last Admin Dose Admin Acetaminophen (Tylenol) 650 mg Q4H PRN ORAL FEVER 03/23/18 20:30 04/22/18 20:29 Albuterol/ Ipratropium (Albuterol/ Ipratropium) 3 ml Q4H PRN HHN Shortness of Breath 03/23/18 20:30 03/28/18 20:29 Amlodipine Besylate (Norvasc) 10 mg DAILY ORAL 03/24/18 09:00 04/21/18 13:59 03/25/18 09:31 Aspirin (ASA) 162 mg DAILY ORAL 03/24/18 09:00 04/21/18 08:59 03/25/18 09:30 Dextrose (Dextrose 50%) 25 ml STAT PRN IV Hypoglycemia 03/23/18 20:30 04/22/18 20:29 Dextrose (Dextrose 50%) 50 ml STAT PRN IV Hypoglycemia 03/23/18 20:30 04/22/18 20:29 Dextrose/Sodium Chloride 1,000 ml @ 60 mls/hr [id number] IV 03/23/18 20:15 04/21/18 06:59 03/25/18 20:22 Enalaprilat (Vasotec) 2.5 mg Q6H PRN IV sbp more than 160 03/23/18 20:30 04/22/18 20:29 Heparin Sodium (Porcine) (Heparin 5000 units/ml) 5,000 units EVERY 12 HOURS SUBQ 03/23/18 21:00 04/21/18 08:59 03/26/18 08:39 Insulin Aspart (NovoLOG) BEFORE MEALS AND HS SUBQ 03/23/18 21:00 04/22/18 11:29 03/25/18 06:46 Ketorolac Tromethamine (Toradol 30mg) 30 mg Q6H PRN IV Moderate Pain (Pain Scale 4-6) 03/23/18 20:30 03/28/18 20:29 Lidocaine (Lidoderm 5% PATCH) 1 patch DAILY TDERMAL 03/24/18 09:00 04/21/18 18:59 03/26/18 08:36 Lorazepam (Ativan) 0.5 mg Q6H PRN ORAL For Anxiety 03/23/18 21:30 03/29/18 15:29 Memantine (Namenda) 5 mg BID ORAL 03/24/18 09:00 04/21/18 17:59 03/25/18 17:33 Metformin HCl (Glucophage) 500 mg BIAC ORAL 03/24/18 06:30 04/22/18 11:29 03/26/18 06:44 Morphine Sulfate (Morphine Sulfate) 2 mg Q4H PRN IVP Severe Pain (Pain Scale 7-10) 03/23/18 21:00 03/30/18 20:59 Nitroglycerin (Ntg) 0.4 mg Q5MIN PRN SL Prn Chest Pain 03/23/18 20:15 04/21/18 07:59 Ondansetron HCl (Zofran) 4 mg Q6H PRN IVP Nausea & Vomiting 03/23/18 21:00 04/22/18 20:59 Polyethylene Glycol (Miralax) 17 gm DAILYPRN PRN ORAL Constipation 03/24/18 08:00 04/21/18 07:59 Sitagliptin Phosphate (Januvia) 25 mg DAILY ORAL 03/24/18 09:00 04/22/18 08:59 03/25/18 09:30 Temazepam (Restoril) 15 mg HSPRN PRN ORAL Insomnia 03/23/18 21:00 03/29/18 20:59 Jaison Fine MD Mar 26, 2018 12:55
--- NOTE | 2018-03-26 12:56 | General Progress Note ---
Assessment/Plan Problem List: (1) UTI (urinary tract infection) ICD Codes: N39.0 - Urinary tract infection, site not specified SNOMED: 03359731 (2) Atrial fibrillation ICD Codes: I48.91 - Unspecified atrial fibrillation SNOMED: 78408645 (3) Diabetes ICD Codes: E11.9 - Type 2 diabetes mellitus without complications SNOMED: 44293402 (4) Weak ICD Codes: R53.1 - Weakness SNOMED: 21432189 (5) HTN (hypertension) ICD Codes: I10 - Essential (primary) hypertension SNOMED: 81609957 (6) Altered mental status ICD Codes: R41.82 - Altered mental status, unspecified SNOMED: 378189155 (7) Episode of generalized weakness ICD Codes: R53.1 - Weakness SNOMED: 58486916 Status: stable, progressing Assessment/Plan ot pt diet abx cardio f/u cbc bmp am dc to snf if clear Subjective Constitutional: Reports: weakness Allergies: Coded Allergies: No Known Allergies (Unverified , 03/21/18) All Systems: reviewed and negative except above Subjective calm eating Objective Last 24 Hour Vital Signs Date Time Temp Pulse Resp B/P (MAP) Pulse Ox O2 Delivery O2 Flow Rate FiO2 03/26/18 09:25 Room Air 03/26/18 08:00 97.6 87 19 128/66 (86) 97 97.6 03/26/18 04:00 97.3 94 19 122/66 (84) 98 97.3 03/26/18 00:00 97.8 95 17 125/64 (84) 97 97.8 03/25/18 21:00 Room Air 03/25/18 20:00 97.2 94 18 136/65 (88) 98 97.2 03/25/18 15:55 97.7 92 18 123/70 (87) 97 97.7 Intake and Output 03/25/18 03/26/18 19:00 07:00 Intake Total 960 ml 820 ml Balance 960 ml 820 ml Intake Oral 240 ml 100 ml IV Total 720 ml 720 ml # Voids 3 3 Height (Feet): 5 Height (Inches): 4.00 Weight (Pounds): 165 General Appearance: alert EENT: normal ENT inspection Neck: normal alignment Cardiovascular: normal peripheral pulses, normal rate, regular rhythm Respiratory/Chest: chest wall non-tender, lungs clear, normal breath sounds Abdomen: normal bowel sounds, non tender, soft Extremities: normal inspection Edema: no edema noted Arm (L), no edema noted Arm (R), no edema noted Leg (L), no edema noted Leg (R), no edema noted Pedal (L), no edema noted Pedal (R), no edema noted Generalized Neurologic: responsive, motor weakness Skin: normal pigmentation, warm/dry Arley Red Mar 26, 2018 12:56
[2018-03-26] MEDS ORDERED: LIDODERM700 M1 TOPIC (14:02)
[2018-03-26] MEDS ORDERED: NAMENDA5 MG ORAL (14:02)
[2018-03-26] MEDS ORDERED: NORVASC10 MG ORAL (14:05)
[2018-03-26] MEDS ORDERED: ATIVAN0.5 MG ORAL (14:06)
[2018-03-26] MEDS ORDERED: MIRALAX17 G2 ORAL (14:07)
[2018-03-26] MEDS ORDERED: RESTORIL15 MG ORAL (14:07)
[2018-03-26] MEDS ORDERED: TYLENOL EXTRA500 MG ORAL (14:09)
[2018-03-26] MEDS ORDERED: ALBUTEROL2.5 MG/3 M INH (14:13)
[2018-03-26] MEDS ORDERED: ASPIR 8181 MG ORAL (14:14)
[2018-03-26] MEDS ORDERED: HEPARIN SO5000 UNIT2 SUBQ (14:14)
[2018-03-26] MEDS: D5 1/2NS 1,000 ML IV SCH (14:55)
--- NOTE | 2018-03-26 15:25 | Cardiac Electrophysiology PN ---
Assessment/Plan Assessment/Plan (1) Altered mental status (2) Episode of generalized weakness (3) HTN (hypertension). Continue norvasc 10 mg (4) diastolic dysfunction HFpEF Subjective Subjective No CP or SOB. Refused her meds. DC planning in progress. Objective Last 24 Hour Vital Signs Date Time Temp Pulse Resp B/P (MAP) Pulse Ox O2 Delivery O2 Flow Rate FiO2 03/26/18 12:00 97.8 85 20 154/82 (106) 99 97.8 03/26/18 09:25 Room Air 03/26/18 08:00 97.6 87 19 128/66 (86) 97 97.6 03/26/18 04:00 97.3 94 19 122/66 (84) 98 97.3 03/26/18 00:00 97.8 95 17 125/64 (84) 97 97.8 03/25/18 21:00 Room Air 03/25/18 20:00 97.2 94 18 136/65 (88) 98 97.2 03/25/18 15:55 97.7 92 18 123/70 (87) 97 97.7 Intake and Output 03/25/18 03/26/18 19:00 07:00 Intake Total 960 ml 820 ml Balance 960 ml 820 ml Intake Oral 240 ml 100 ml IV Total 720 ml 720 ml # Voids 3 3 Objective HEENT: No JVD LUNGS: CTA CVS: RRR ABDOMEN: soft EXT: No Edema Paulo Justice MD Mar 26, 2018 15:25
--- NOTE | 2018-03-27 10:49 | Progress Note ---
DATE: 03/24/2018 NOTE: POOR AUDIO SUBJECTIVE: This is an 87-year-old female patient with altered mental status. This patient came to the hospital confused and disorganized. She had altered mental status. This patient came in very confused, disorganized, mood labile. . She has altered mental status, confusion, urinary tract infection, cognition declined below baseline. She continues to be confused and disorganized that is why her attending physician has requested daily psychiatric consultation to prevent any further decline in cognition. MENTAL STATUS EXAMINATION: She is an 87-year-old female, appearance is disheveled. Attitude is irritable and agitated. Affect guarded and restricted. Intellect poor. Motor activity, psychomotor retardation. Mood is depressed and anxious. Motor activity, psychomotor agitation. Attention span is poor. Orientation x2. Speech is low volume and slurred. Thought process, disorganized and illogical. Insight and judgment is poor. DIAGNOSIS: Major depressive disorder, mild, recurrent with psychotic features. PLAN: Treat her with Namenda 5 mg twice a day and Ativan 0.5 mg every 6 hours p.r.n. anxiety and agitation. Provided 20 minutes of insight-oriented psychotherapy behavior in the unit, . Chart was reviewed. Discussed with staff. The patient was seen and assessed at bedside. Lucero Bahena M.D. DR: Vern JOB#: [id number] CC:
--- NOTE | 2018-03-27 10:53 | Progress Note ---
DATE: 03/25/2018 HISTORY: The patient is an 87-year-old female patient with altered mental status, still very confused and disorganized. She had agitation, irritability, high levels of anxiety, worsened by stress of her medical illness. So, her treating attending physician has requested daily psychiatric consultation. MENTAL STATUS EXAMINATION: The patient is an 87-year-old female. Appearance is disheveled. Attitude, irritable and agitated. Affect, guarded and restricted. Intellect poor. Mood, depressed and anxious. Motor activity, psychomotor agitation. Attention span is poor. Orientation x2. Speech is pressured. Thought process, disorganized and illogical. Insight and judgement is poor. DIAGNOSIS: Major depression with psychotic features, rule out pseudodementia. PLAN: Treat her with Namenda 5 mg twice a day, Ativan 0.5 mg p.o. q.6 h. Provide 20 minutes of insight-oriented psychotherapy to improve the patient's insight and orientation to have better impulse control and behavior in the unit. Chart reviewed. Discussed with staff. Seen and assessed at bedside. Lucero Bahena M.D. DR: SINDY JOB#: [id number] CC:
--- NOTE | 2018-03-27 10:57 | Progress Note ---
DATE: 03/26/2018 SUBJECTIVE: The patient is an 87-year-old female patient altered mental status, confusion, and disorganized thought process worsened by the stress of her medical illness. MENTAL STATUS EXAMINATION: The patient is an 87-year-old female. Appearance is disheveled. Attitude, irritable and agitated. Affect, guarded and restricted. Intellect poor. Mood, depressed and anxious. Motor activity, psychomotor agitation. Attention span is poor. Orientation x2. Speech is pressured. Thought process, disorganized and illogical. Insight and judgment is poor. DIAGNOSIS: Major depression with psychotic features, rule out pseudodementia. PLAN: Treat with Namenda 5 mg twice a day, Ativan 0.5 mg q.6 h. p.r.n. anxiety and agitation. A 20 minutes of insight-oriented psychotherapy provided. The patient . Chart reviewed. Discussed with staff. Seen and assessed at bedside. Lucero Bahena M.D. DR: SINDY JOB#: [id number] CC:
--- NOTE | 2018-03-27 11:47 | Consultation ---
DATE OF CONSULTATION: 03/22/2018 NOTE: "POOR AUDIO QUALITY" INITIAL PSYCHIATRIC CONSULTATION CONSULTING PHYSICIAN: Lucero Bahena M.D. HISTORY OF PRESENT ILLNESS: This is an 87-year-old female patient. The patient was seen and assessed at bedside. Currently, she came in because she was status post fall and her family member brought her in for this, but she continues to have disorganized thought process. According to the family, that is not baseline for her due to her cognition has declined below baseline and for that reason, there is a daily psychiatric consultation requested for this patient in order to prevent any further decline in her cognition. The patient was seen and assessed at bedside, still confused, very poor insight very poor historian. Provided information had been dictated through chart review. As far as her documentation, the patient was not able to see me or talk to me at that time and at that time. She felt dizzy and cannot walk any more. Her family is concerned over her sudden decline in physical function as well as cognitive dysfunction as well. MEDICAL HISTORY: She has history of hypertension, status post vertebral fracture, atrial fibrillation, coronary artery disease. ALLERGIES: She has no known drug allergies. FAMILY PSYCHIATRIC HISTORY: Denies. PAIN ASSESSMENT: 10/21 pain. DEVELOPMENTAL PROBLEMS: Denies. SUBSTANCE ABUSE HISTORY: Denies. SOCIAL HISTORY: Lives with family. Financially supported by [employer] and Medicare. PSYCHIATRIC HISTORY: There is no previous known psychiatric history. STRENGTHS: Motivated to be better. She has a place to live. WEAKNESSES: She is impulsive. Poor insight. MENTAL STATUS EXAMINATION: An 87-year-old female. Appearance disheveled. Attitude, irritable and agitated. Affect, guarded and restricted. Intellect poor. . Affect, guarded and restricted. Intellect poor. Mood, depressed and anxious. Motor activity, psychomotor agitation. poor. Memory is poor. Speech is low volume and slurred. Thought process, disorganized. Thought content, denies auditory or visual hallucinations and delusions, but insight and judgment is poor. For the short-term memory, 1/3 word recall after 5-minute delay reveals poor short-term memory. Long-term memory, she is unable to recall multiple long-term events. Insight and judgment is poor. DIAGNOSIS: Major depressive disorder, mild, recurrent with psychotic features, rule out pseudodementia and medical atrial fibrillation, status post fall, , psychosocial stressors, family stressors. PLAN: Plan for this patient, I am going to recommend for this patient is to prevent any further decline in cognition, I am going to start this patient on a dose of Namenda 5 mg twice a day and the reason why I am doing that is to prevent any further decline in cognition and also in case she has lots of agitation and irritability, I am also going to add Ativan of low dose due to the patient's age. I am going to start her on Ativan 0.5 mg q.6 hours p.r.n. anxiety and agitation. Twenty minutes of insight-oriented psychotherapy the patient to recognize cognitive impairment and psychiatric issues and also recognize she has better impulse control and more awareness, a 20-minute insight-oriented psychotherapy. Chart reviewed. Discussed with staff. The patient seen and assessed at bedside. Lucero Bahena M.D. DR: Yasmin JOB#: [id number] CC:
--- NOTE | 2018-03-27 13:15 | Discharge Summary ---
Discharge Summary Discharge Summary _ DATE OF ADMISSION: 03/22/2018 DATE OF DISCHARGE: 03/26/2018 REASON FOR ADMISSION: 87 years old female with past medical history significant for hypertension, diabetes, atrial fibrillation, coronary artery disease, presented by paramedics with episode of generalized weakness. During exam noted rapid heartbeat. Patient was altered and unable to provide any information. Family members unable to care for her at home. Vital signs revealed tachycardia 160 and low blood pressure 95/67. No leukocytosis, stable hemoglobin and hematocrit . Potassium 3.3 ,magnesium 1.1. BUN 29 creatinine 1.4. Troponin negative. EKG revealed atrial fibrillation with rapid ventricular response. Chest x-ray revealed no acute cardiopulmonary pathology. Urinalysis was consistent with UTI. CT of the head revealed no acute intracranial pathology. Patient admitted with diagnoses of atrial fibrillation with rapid ventricular response , probable UTI, renal insufficiency,altered mental status ,diabetes , hypertension. CONSULTANTS: winch runner Dr. Varela neurologist Dr. Morelos pulmonary Dr. Fine ID specialist Dr. Quezada psychiatrist [facility]: Patient admitted. Patient started on empiric antibiotics. Urine culture and blood culture were negative. Urinalysis was grossly positive for UTI . Patient status post treatment with antibiotic. ID specialist closely followed . Altered mental status was likely secondary to acute encephalopathy due to general medical condition. Neurologist closely followed. CT scan revealed no acute intracranial pathology but showed chronic cerebrovascular disease and old lacunar infarcts in basal ganglia. Patient was on antiplatelet therapy. Lipid panel was stable. Laboratory workup revealed B12 deficiency. Patient's cognitive dysfunction was most probably due to primary degenerative dementia. B12 deficiency could contributed to it as well. Patient started on B12 replacement and to be continued with monthly replacement. Pain management was provided. Lidoderm patch provided daily to help with back pain. Patient was working with physical and occupational therapists. Hotel Service Manager closely followed. Echocardiogram revealed preserved ejection fraction of 60-65% and right ventricular systolic pressure of 20. Noted grade 2 diastolic dysfunction. No signs of fluid overload. No need for diuresis. Salt restricted diet continued. Blood pressure was managed with calcium channel yuriy, and was controlled. Patient was given gentle fluids. Patient initially demonstrated atrial fibrillation with rapid ventricular response, spontaneously converted to sinus rhythm. Repeated EKG revealed sinus rhythm. No need for anticoagulation given increased risk and advanced age. Heart rate remained controlled. TSH within normal limits. Renal parameters and electrolytes were closely monitored. Electrolytes replaced as needed. Nephrotoxins were avoided. Renal insufficiency ,present on admission resolved, likely brought by dehydration, resolved. Prior to discharge BUN from initial 29 down to 13 and creatinine from initial 1.4 down to 1.0. Blood sugar was managed with Januvia, metformin and sliding scale of insulin as needed. Blood sugar remained stable. DVT prophylaxis provided. Pain management addressed. Bowel regimen instituted. Supportive care provided. Placement was found to the longterm facility. Patient was stable for transfer for continuation of care FINAL DIAGNOSES: UTI altered mental status secondary to acute encephalopathy paroxysmal atrial fibrillation with rapid ventricular response hypertension coronary artery disease diastolic dysfunction ( with preserved ejection fraction ) primary degenerative dementia B12 deficiency diabetes mellitus renal insufficiency -resolved major depressive disorder with psychotic features DISCHARGE MEDICATIONS: See Medication Reconciliation list. DISCHARGE INSTRUCTIONS: Patient was discharged to the longterm facility. Follow up with medical doctor at the facility. I have been assigned to dictate discharge summary for this account. I was not involved in the patient's management. Sindi Simmons NP Mar 27, 2018 13:15
--- NOTE | 2018-03-29 09:01 | Progress Note ---
DATE: 03/23/2018 SUBJECTIVE: This is an 87-year-old female patient. She was admitted to this hospital secondary to altered mental status, but she has continued to have decline in cognition below baseline. That is why, her attending physician has requested daily psychiatric consultation. MENTAL STATUS EXAMINATION: This is an 87-year-old female. Appearance is disheveled. Attitude, irritable and agitated. Affect, guarded and restricted. Intellect poor. Mood is depressed and anxious. Motor activity, psychomotor agitation. Attention span is poor. Orientation x2. Speech is pressured. Thought process, disorganized and illogical. Thought content, auditory hallucinations and paranoid delusions. Insight and judgment is poor. DIAGNOSIS: Major depressive disorder, mild, recurrent without psychotic features. PLAN: Treat her with Namenda 5 mg twice a day and Ativan 0.5 mg p.o. q.6 hours p.r.n. anxiety and agitation. A 20 minutes of cognitive behavioral therapy . Chart reviewed. Discussed with staff. Seen and assessed in the room. Lucero Bahena M.D. DR: GRZEGORZ JOB#: [id number] CC:
== END 2018-03-26 15:10 | DRG 689 ==
LOC: EDBD 23:20 → EDBEDREQ 23:35 → EMR 23:40 → 2E 03-22 01:04 → EDBEDREQ 03-22 02:07 → 4E 03-23 20:28 → 3E 03-25 12:53
DX: N39.0 Urinary tract infection, site not specified (principal); G93.40 Encephalopathy, unspecified; F32.3 Major depressive disorder, single episode, severe with psychotic features; I25.10 Atherosclerotic heart disease of native coronary artery without angina pectoris; I48.0 Paroxysmal atrial fibrillation; E11.9 Type 2 diabetes mellitus without complications; I10 Essential (primary) hypertension; F03.90 Unspecified dementia, unspecified severity, without behavioral disturbance, psychotic disturbance, mood disturbance, and anxiety; E53.8 Deficiency of other specified B group vitamins; R26.2 Difficulty in walking, not elsewhere classified; S32.029D Unspecified fracture of second lumbar vertebra, subsequent encounter for fracture with routine healing; W19.XXXD Unspecified fall, subsequent encounter; R53.1 Weakness
CPT/HCPCS: 36415; 70450; 71045; 80048; 80053; 80061; 81003; 82306; 82550; 82553; 82607; 82746; 82962; 83605; 83735; 83880; 84100; 84443; 84484; 85025; 85610; 85730; 86140; 86592; 87040; 87086; 93005; 93306; 94664; 94760; J1815